=== PATIENT | female | born 1930 | race African-American/Black ===

== ENCOUNTER 2018-09-08 13:48 | Outpatient (CLI) | payer MEDICARE, BC ==
--- NOTE | 2018-09-08 20:19 | PET ---
PET CT WITH ATTENUATION CORRECTION: 09/08/18 HISTORY: Lymphoma. Initial examination. COMPARISON: None. TECHNIQUE: PET scan with CT attenuation correction is performed from the base of the brain to the proximal thigh s following the intravenous administration of 10.5 millicuries of [id number]. CORRELATION: Abdomen and pelvic CT [facility] 08/05/18. FINDINGS: HEAD AND NECK: There is a hypermetabolic left and right periclavicular lymph node with a maximum SUV of 6.5 and 12.1 respectively. CHEST: Hypermetabolic bilateral axillary lymph nodes. [employer] hypermetabolic lymph node in the left a xilla has a maximum SUV of 3.7. There is hypermetabolic activity involving the precarinal lymph node with a maximum SUV of 19.2, subcarinal lymph node with maximum SUV of 15.8, left hilar lymph node wit h maximum SUV of 9.8. ABDOMEN AND PELVIS: There is a hypermetabolic periportal lymph node with maximum SUV of 16.3, peripancreatic lymph node a djacent to the body of the pancreas with maximum SUV of 9.9, periaortic lymph nodes with maximum SUV of 8.9 and 11.8, right lower quadrant mesenteric lymph node with maximum SUV of 16.2. There is a hype rmetabolic lymph node adjacent to the right common iliac vessels with a maximum SUV of 5.7. There is hypermetabolic lymph nodes in the right external iliac region with a maximum SUV of 13.8 and left ext ernal iliac region with a maximum SUV of 14.4. There are hypermetabolic bilateral inguinal lymph node s. OSSEOUS STRUCTURES: No abnormal FDG localization. The background SUV of the liver is between 3.5 and 3.8. 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 The Deauville score is 5. There i s uptake markedly increased compared to liver at multiple sites. POS: [facility]
== END 2018-09-08 13:49 | disposition home or self-care (01) ==
LOC: PET 13:48
PROVIDERS: ATTEND Internal Medicine Hematology & Oncology
DX: C85.99 Non-Hodgkin lymphoma, unspecified, extranodal and solid organ sites (principal); R94.8 Abnormal results of function studies of other organs and systems
CPT/HCPCS: 78815; A9552

== ENCOUNTER 2018-10-23 14:31 | Inpatient (IN) | payer MEDICARE, BC ==
--- NOTE | 2018-10-23 16:12 | CT ---
HEAD CT NONCONTRAST: Comparison: 09-18-14 Indication: Altered mental status. FINDINGS: There is density of each basal ganglia indicating physiologic basal ganglia calcification. There is n o intracranial hemorrhage or mass effect or midline shift. No acute fluid level of the imaged paranas al sinuses. Evidence of mild chronic ischemic disease is present. IMPRESSION: No acute intracranial abnormalities. POS: [facility]
[2018-10-23 17:01] LABS: Hemoglobin 8.4 g/dL (12.0-16.0); Mean Corpuscular HGB CONC 31.4 g/dL (32.0-36.0); Mean Corpuscular Hemoglobin 22.5 pg (27.0-31.0); Mean Corpuscular Volume 71.6 fL (78.0-98.0); Mean Platelet Volume 7.3 fL (7.4-10.4); Platelet Count 95 thou/uL (130-400); RBC Distribution Width 17.5 % (11.5-14.5); Red Blood Cell (RBC) Count 3.73 mill/uL (4.20-5.40); White Blood Cell (WBC) Count 7.3 thou/uL (4.8-10.8)
[2018-10-23 17:04] LABS: Anisocytosis SLIGHT = 6-15 cells (100X) (0-5/hpf); Band 10 % (5-11); Hypochromia SLIGHT = 6-15 cells (100X) (0-5/hpf); Large Platelets SLIGHT; Lymphocytes 14 % (21-51); MDiff Complete? YES; Microcytosis SLIGHT = 6-15 cells (100X) (0-5/hpf); Monocytes 7 % (0-10); Neutrophil 69 % (42-75); Platelet Morphology Comment Appears Decreased; Polychromasia MODERATE = 3-4 cells (100X) (0-2/hpf); Spherocytes SLIGHT = 1-5 cells (100X) (None Seen); Target Cells SLIGHT = 2-5 cells (100X) (0-1/hpf)
[2018-10-23 17:33] LABS: ALT (SGPT) Less than 7 U/L (8-55); AST (SGOT) 12 U/L (5-34); Albumin 3.2 g/dL (3.4-4.8); Alkaline Phosphatase 81 U/L (40-150); Anion Gap 12 mmol/L (10-20); BUN (Urea Nitrogen) 18 mg/dL (9.8-20.1); Bilirubin, Total 0.7 mg/dL (0.2-1.2); Calc. Creatinine Clearance 0 mL/min (70-130); Calcium 9.7 mg/dL (7.8-10.44); Carbon Dioxide 24 mmol/L (23-31); Chloride 108 mmol/L (98-107); Estimated GFR-MDRD 50; Globulin 3.3 g/dL (2.4-3.5); Glucose 95 mg/dL (83-110); Magnesium 1.9 mg/dL (1.6-2.6); Potassium 4.4 mmol/L (3.5-5.1); Protein, Total 6.5 g/dL (6.0-8.3); Sodium 140 mmol/L (136-145)
[2018-10-23 19:37] LABS: Bilirubin Negative (Negative); Blood, Urine Negative (Negative); Clarity CLOUDY (Clear); Glucose, Urine (Dipstick) Negative (Negative); Leukocyte Negative (Negative); Nitrite Negative (Negative); Protein, Urine (Dipstick) Negative (Neg-Trace); Specific Gravity, Urine 1.015 (1.002-1.036)
[2018-10-23] MEDS ORDERED: Bisacodyl 10 MG SUPP PR PRN (21:37)
[2018-10-23] MEDS ORDERED: hydrALAZINE 20 MG/ML VIAL SLOW IVP PRN (21:37)
[2018-10-23] MEDS ORDERED: Senokot S 8.6-50 MG TAB PO PRN ×2 (21:37)
[2018-10-23] MEDS ORDERED: Bisacodyl 5 MG TAB PO PRN (21:37)
[2018-10-23] MEDS ORDERED: cloNIDine 0.1 MG TAB PO PRN (21:37)
[2018-10-23] MEDS ORDERED: Nitroglycerin 0.4 MG TAB (25 Tab Bottle) SL PRN (21:37)
[2018-10-23] MEDS ORDERED: Ondansetron PF 4 MG/2 ML Vial IVP PRN (21:37)
[2018-10-23] MEDS ORDERED: Calcium Carbonate 500 MG ChewTAB PO PRN (21:37)
[2018-10-23] MEDS ORDERED: Diabetic Tussin 200 MG/10 ML UDCUP PO PRN (21:37)
[2018-10-23] MEDS ORDERED: Benzonatate 100 MG CAP PO PRN (21:37)
[2018-10-23] MEDS ORDERED: Sodium Chloride 0.9% 1,000 ML IV SCH (21:45)
[2018-10-23 22:05] LABS: Reticulocyte Count 4.1 % (0.5-1.5)
[2018-10-23 22:06] LABS: Fibrinogen 411 mg/dL (253-463); Platelet Count 89 thou/uL (130-400)
[2018-10-23 22:07] LABS: INR-International Normal Ratio 1.2; PTT 27.2 SEC (22.9-36.1); Prothrombin Time 15.5 SEC (12.0-14.7)
[2018-10-23 22:08] LABS: D-Dimer Test 1.61 *mcg/mL (0.27-0.43)
[2018-10-23 22:20] LABS: Uric Acid 6.3 mg/dL (2.6-6.0)
[2018-10-23 22:24] LABS: Band 9 % (5-11); Hemoglobin 8.1 g/dL (12.0-16.0); Hypochromia MODERATE=16-30 cells (100X) (0-5/hpf); Lymphocytes 17 % (21-51); MDiff Complete? YES; Mean Corpuscular HGB CONC 31.1 g/dL (32.0-36.0); Mean Corpuscular Hemoglobin 22.1 pg (27.0-31.0); Mean Corpuscular Volume 71.2 fL (78.0-98.0); Mean Platelet Volume 7.2 fL (7.4-10.4); Metamyelocyte 1 % (0-0); Microcytosis MODERATE=15-30 cells (100X) (0-5/hpf); Monocytes 12 % (0-10); Neutrophil 61 % (42-75); Platelet Count 89 thou/uL (130-400); Platelet Morphology Comment Appears Decreased; RBC Distribution Width 17.4 % (11.5-14.5); Red Blood Cell (RBC) Count 3.66 mill/uL (4.20-5.40); White Blood Cell (WBC) Count 6.4 thou/uL (4.8-10.8)
[2018-10-23 22:34] LABS: FSP-Qualitative ABNORMAL (Normal); FSP-Semiquantitative >=5 & <20 mcg/mL (Less than 5)
[2018-10-23 22:57] LABS: Phosphorus 3.6 mg/dL (2.3-4.7)
[2018-10-23] MEDS ORDERED: Lorazepam 2 MG/ML VIAL SLOW IVP PRN (23:13)
[2018-10-23 23:16] VITALS: BMI 34.1
[2018-10-24] MEDS: Sodium Chloride 0.9% 1,000 ML IV SCH ×2 (00:03→16:51)
--- NOTE | 2018-10-24 00:42 | HP ---
PRIMARY CARE PHYSICIAN: Dr. Morris. PRIMARY ONCOLOGIST: Dr. Solomon. CHIEF COMPLAINT: Passing-out spells. HISTORY OF PRESENTING ILLNESS: Ms. Pearson is a very pleasant 88-year-old Afro-[place]er female with new diagnosis of lymphoma of unknown type, presented to the emergency room with the above-mentioned complaint. History is mainly obtained by her daughter and son who are present in the room. The patient is not wanting to talk much at this time as she does not have her dentures on. According to the chart review and her family, the patient has been having these episodes of passing out for the last month or so. A typical episode starts when she feels dizzy and she just passes out. The first two times she actually fell. These episodes last anywhere from 5 to 7 minutes. When she wakes up from these episodes, she just yawns and comes to it quickly. She does have amnesia for the episode, but is not confused afterwards. There is no tongue biting or incontinence during these episodes. Today, it happened again and lasted for about 30 minutes and she vomited once, so they brought her to the hospital. She did have an appointment with Dr. Solomon today, but unfortunately she missed it. With regard to her lymphoma, it is a new diagnosis for them. They have been told what kind of lymphoma it is, but they do not remember. She has been offered chemotherapy and is contemplating if she really wants it or not. In the emergency room upon presentation, she was hemodynamically stable with a blood pressure of 112/40, temperature 98.1, and pulse of 79. She, however, had multiple lab abnormalities including a hemoglobin of 8.4, which is largely microcytic hypochromic and a platelet count of 95. Her last hemoglobin was 11.1 five years ago, so there is no recent lab available for me to review. The last platelet count in our system is also from 2013 which was normal. The patient denies any active bleeding. She denies any recent illnesses. She denies any chest pain, palpitations, or shortness of breath. She denies any dysuria, frequency, urgency, nausea, vomiting, or diarrhea, except for the one episode of vomiting today. She has good appetite and has not been losing any weight. She denies any night sweats. In the ER, her cardiac enzymes and TSH were also checked, which were normal. She had mild elevation of creatinine to 1.23, which seems to be baseline. Her creatinine in 2014 was almost the same. Urinalysis is unremarkable in the ER. CT scan of the brain done in the emergency room does not show any hemorrhage or any masses. She is now being admitted for further workup of syncope, anemia, and thrombocytopenia. PAST MEDICAL HISTORY: 1. New diagnosis of lymphoma of unknown type. 2. Hypertension. 3. Dyslipidemia. 4. Peptic ulcer disease. 5. Depression. 6. History of sickle cell trait. 7. Chronic insomnia. 8. Obesity. 9. Deconditioning. 10. Degenerative joint disease. PAST SURGICAL HISTORY: 1. Three back surgeries. 2. Appendectomy. 3. Hysterectomy. 4. Laparoscopic cholecystectomy with bowel perforation in 1993. 5. EGD. ALLERGIES: NO KNOWN MEDICATION ALLERGIES. SOCIAL HISTORY: She lives with the family. No history of drug, tobacco, or alcohol abuse. FAMILY HISTORY: Positive for diabetes and hypertension. CURRENT HOME MEDICATIONS: Not confirmed as yet. According to the ER note, she takes the followin. Aspirin 81 mg daily. 2. Celebrex 50 mg daily. 3. Amitriptyline 50 mg daily. 4. Levothyroxine 50 mcg daily. 5. Folic acid 1 mg daily. 6. Atorvastatin 20 mg daily. CODE STATUS: Full code, discussed with the patient and her family. LABORATORY DATA: Her CBC shows WBC 7.3 without any left shift. Her lymphocyte count is actually low at 14%. Platelet count 95 with repeat counts of 89. Hemoglobin 8.4 with a repeat count of 8.1, which is hypochromic and microcytic in nature. Serum chemistries show creatinine 1.23, but otherwise largely unremarkable. Liver enzymes are normal. Total bilirubin is normal at 0.7. Serum total protein is 6.5. TSH 2.2. Urinalysis unremarkable. IMAGING: CT scan of the brain by my review shows no evidence of acute hemorrhage, masses, or acute CVA. A 12-lead EKG by my review shows some T-wave flattening in the lateral leads, otherwise normal ST-segment, in sinus rhythm at heart rate of 82. PHYSICAL EXAMINATION: VITAL SIGNS: Most recent vital signs; temperature 98.2, pulse of 66, respirations 20, saturating 99% on room air, and blood pressure 142/66. GENERAL: No acute distress. Lying in bed comfortably. Family is at bedside. She is awake, alert, and oriented x3. HEENT EXAMINATION: Mucous membrane is moist and pink. No oropharyngeal exudate or erythema. Head is normocephalic and atraumatic. Pupils are equal and reactive to light and accommodation. Extraocular movement intact. NECK: Supple without any lymphadenopathy, JVD, or bruit. CHEST: Clear to auscultation without any wheezing, rales, or rhonchi. HEART: Rhythm is regular without any murmurs or gallops. ABDOMEN: Soft, nontender, and nondistended with positive bowel sounds. EXTREMITIES: Free of any cyanosis, clubbing, or edema. NEUROLOGICAL EXAMINATION: Nonfocal. SKIN: Free of any rashes or bruises. Feels warm and dry. PSYCHIATRIC: Normal affect. IMPRESSION AND PLAN: 1. Syncope. The patient's symptoms are quite concerning for seizure activity. We will go ahead and obtain an MRI of the brain as well as EEG. Also, obtain a carotid Doppler ultrasound and transthoracic echocardiogram. She will be on telemetry to rule out any arrhythmias, but most of her symptoms are consistent with seizures. We will consult Neurology in the morning for same as well. She is at her baseline for now and we will avoid any antiepileptic drugs for now. Use Ativan p.r.n. for any seizure like activities, if it happens again. She is also hemodynamically stable at this time. I do not believe that her anemia is responsible for her symptoms, which are episodic and chronic in nature for almost last month or so. 2. Fall precautions will be instituted. 3. Anemia and thrombocytopenia. There is no recent baseline for this patient. She does not seem to be having any overt bleeding. We will get her labs from Dr. Solomon' office. No indication for transfusion at this time. We will avoid any pharmacological DVT prophylaxis on her given thrombocytopenia and hold her aspirin and for now as they are both antiplatelet medications. Also at this time, hemolysis, such as microangiopathic hemolytic anemia because of lymphoma cannot be ruled out. Other differential would include thrombotic thrombocytopenic purpura and disseminated intravascular coagulation, which can be potentially life threatening. We will send a disseminated intravascular coagulation panel though the thrombotic thrombocytopenic purpura is less likely. We will send the peripheral smear to look for schistocytes. Also, check iron levels and other iron indices as well as B12 and folic acid level. We will send for LDH as well as reticulocyte count. The patient also has history of sickle cell trait. She is relatively hemodynamically stable, so most likely the drop in hemoglobin is not acute. At the same time, bone marrow infiltration or hypersplenism because of the lymphoma cannot be ruled out. Depending upon how aggressive the treatment she is willing to get, a bone marrow biopsy might also be indicated. We will consult her oncologist in the morning for this reason. 4. New diagnosis of lymphoma, unknown type. The patient or the family could not tell me what type of lymphoma she has been diagnosed with. We will consult her oncologist and she will follow up in the outpatient setting with regard to the treatment for same. 5. History of hypothyroidism. Restart her levothyroxine once the dose is confirmed. 6. History of peptic ulcer disease. We will start her on Protonix, so at this time, there does not seem to be any active bleeding. The patient denies any hematochezia or melena. 7. Code status. Full code, discussed with the patient. 8. Deep venous thrombosis and gastrointestinal prophylaxis in the form of SCDs and Protonix. 9. Hypertension. Currently does not seem to be on any medications. We will monitor her blood pressure and treat accordingly. Meanwhile, start her on p.r.n. antihypertensives. DISPOSITION: Ms. Pearson is currently being admitted to the stroke floor for syncopal-like episodes, which can be seizures versus other etiology as mentioned above. She is currently under observation status. Further management will depend on her clinical course. She is hemodynamically stable. Job ID: [id number]
[2018-10-24 05:21] LABS: Band 13 % (5-11); Eosinophils 1 % (0-10); Hemoglobin 7.2 g/dL (12.0-16.0); Hypochromia MODERATE=16-30 cells (100X) (0-5/hpf); Lymphocytes 23 % (21-51); MDiff Complete? YES; Mean Corpuscular HGB CONC 31.5 g/dL (32.0-36.0); Mean Corpuscular Hemoglobin 22.5 pg (27.0-31.0); Mean Corpuscular Volume 71.3 fL (78.0-98.0); Mean Platelet Volume 7.6 fL (7.4-10.4); Microcytosis MODERATE=15-30 cells (100X) (0-5/hpf); Monocytes 5 % (0-10); Neutrophil 58 % (42-75); Platelet Count 77 thou/uL (130-400); Platelet Morphology Comment Appears Decreased; RBC Distribution Width 17.4 % (11.5-14.5); Red Blood Cell (RBC) Count 3.18 mill/uL (4.20-5.40); White Blood Cell (WBC) Count 5.1 thou/uL (4.8-10.8)
[2018-10-24 05:32] LABS: Anion Gap 10 mmol/L (10-20); BUN (Urea Nitrogen) 19 mg/dL (9.8-20.1); Calc. Creatinine Clearance 52 mL/min (70-130); Calcium 9.1 mg/dL (7.8-10.44); Carbon Dioxide 25 mmol/L (23-31); Chloride 106 mmol/L (98-107); Estimated GFR-MDRD 55; Glucose 94 mg/dL (83-110); Iron 65 ug/dL (50-170); Iron Binding Capacity, Total 198 mcg/dL (265-497); Potassium 4.1 mmol/L (3.5-5.1); Sodium 137 mmol/L (136-145)
[2018-10-24 05:58] LABS: Folate (Folic Acid) 14.9 ng/mL (7.0-31.4)
--- NOTE | 2018-10-24 09:15 | ULT ---
BILATERAL CAROTID DUPLEX ULTRASOUND: HISTORY: Altered mental status, TIA, CVA. TECHNIQUE: Norton scale, color flow, and spectral Doppler imaging of the extracranial carotid artery systems is pe rformed bilaterally. FINDINGS: There is plaque formation on either side. The peak systolic velocity in the right ICA measures 135 cm/s with an end-diastolic velocity of 32 cm /s and a systolic ratio of 0.9. The peak systolic velocity in the left ICA measures 145 cm/s with an end-diastolic velocity of 24 cm/ s and a systolic ratio of 0.8. Flow in both vertebral arteries remains antegrade. IMPRESSION: No evidence of hemodynamically significant stenosis. POS: [facility]
--- NOTE | 2018-10-24 10:51 | CON ---
DATE OF CONSULTATION: 10/24/2018 TYPE OF CONSULTATION: Neurologic Followup Note. CONSULT PHYSICIAN: Hospitalist Service. IMPRESSION: 1. Recurrent seizure. 2. Lymphoma. PLAN: 1. Keppra 1500 mg now and 500 mg twice a day. 2. Office followup. HISTORY OF PRESENT ILLNESS: Ms. Pearson is an 88-year-old black female, who was previously worked up at [facility] in August for what appeared to be her first seizure. Her workup was negative at that time, and she was discharged without medication regimen. Reports she had a recurrent episode, where she became transiently confused appearing and would not respond appropriately. She did not have any type of convulsion. The episode lasted around 10 minutes. She had seen other episodes that only lasted 2 or 3 minutes. If she is standing, she would lose control and fall. She had a similar episode and was brought in. She had an MRI of the brain done, which was unremarkable. Carotid Doppler shows no evidence of stenosis. Her laboratory studies were all unremarkable as well. She has otherwise been stable. PAST MEDICAL HISTORY: Lymphoma with pending treatment by Dr. Solomon. ALLERGIES: NONE. SOCIAL HISTORY: No tobacco or alcohol. MEDICATIONS: Medication list was reviewed. FAMILY HISTORY: Noncontributory. REVIEW OF SYSTEMS: Ten-system review of systems is otherwise negative. PHYSICAL EXAMINATION: VITAL SIGNS: Blood pressure 111/55, pulse 83, respirations 16, and temperature 98.5. HEENT: Within normal limits. NECK: Supple. No lymphadenopathy. EXTREMITIES: No cyanosis or edema. NEUROLOGIC: She is alert and appropriate. Her speech is fluent and clear. Exam is nonfocal. No abnormal movements were seen. IMAGING: Reviewed. SUMMARY: An elderly lady with recurrent focal seizure activity. I will go ahead and start her on Keppra and follow up with her in the office. Job ID: [id number]
[2018-10-24] MEDS ORDERED: levETIRAcetam 500 MG TAB PO SCH (11:00)
--- NOTE | 2018-10-24 11:24 | PDOC.PN ---
- Subjective Encounter Start Date: 10/24/18 Encounter Start Time: 10:30 Subjective: Patient examined today, denies complaints -: Stated Dr. Solano came to see her today - Objective Resuscitation Status - Order Detail: 10/23/18 23:02 Resuscitation Status Routine Resuscitation Status: FULL: Full Resuscitation Discussed with: discussed with pt and family Vital Signs & Weight: Vital Signs (12 hours) Temp Pulse Resp BP Pulse Ox 10/24/18 07:39 98.5 F 83 16 111/55 L 98 10/24/18 04:00 98.6 F 75 18 102/43 L 99 10/24/18 00:00 98.7 F 79 18 116/54 L 98 Weight Weight 93.043 kg Result Diagrams: 10/24/18 04:15 10/24/18 04:15 Phys Exam - Physical Examination HEENT: PERRLA, moist MMs Neck: no nodes, no JVD Respiratory: clear to auscultation bilateral Cardiovascular: RRR, no significant murmur Gastrointestinal: soft, non-tender, positive bowel sounds Musculoskeletal: no edema, pulses present Neurological: non-focal, normal sensation, moves all 4 limbs Lymphatic: no nodes Psychiatric: normal affect, A&O x 3 Skin: normal turgor, cap refill <2 seconds Dx/Plan (1) Seizure Code(s): R56.9 - UNSPECIFIED CONVULSIONS Status: Acute (2) Lymphoma Status: Acute (3) Syncope and collapse Code(s): R55 - SYNCOPE AND COLLAPSE Status: Acute (4) Anemia Code(s): D64.9 - ANEMIA, UNSPECIFIED Status: Chronic (5) Thrombocytopenia Code(s): D69.6 - THROMBOCYTOPENIA, UNSPECIFIED Status: Chronic (6) Hypertension Code(s): I10 - ESSENTIAL (PRIMARY) HYPERTENSION Status: Chronic - Plan cont current plan of care Neuro to add Keppra, MRI brain and carotid doppler neg -: Awaiting Oncology consult -: Recheck labs, trend vital signs -: May be able to discharge tomorrow if Oncology agrees. * .
--- NOTE | 2018-10-24 12:37 | MRI ---
MRI BRAIN WITH AND WITHOUT CONTRAST: HISTORY: An 88-year-old female with lymphoma who presents with altered mental status. TECHNIQUE: Multiple sequences obtained in axial, sagittal, and coronal planes; pre and post IV injection of gado linium-based contrast agent: 9 mL of MultiHance. FINDINGS: The ventricles are normal in size and configuration. There is no restricted diffusion, abnormal intr aaxial enhancement, mass, midline shift or any other mass effect, recent intraaxial hemorrhage, or ex traaxial fluid collection. There are a few scattered punctate T2-hyperintensities in the cerebral whi te matter consistent with mild chronic ischemic white matter changes due to mild microvascular athero sclerosis. IMPRESSION: 1. Mild chronic ischemic white matter changes. 2. Otherwise negative. jn[] POS: [facility]
--- NOTE | 2018-10-24 13:40 | PDOC.EVN ---
Event Note - Event Note Event Note: Chart reviewed. Pt seen with Marisela O'chon. Pt says she feels well, no complaints. VSS S1, S2, reg Lungs CTA A/P Seizure vs syncope, probably seizure. Pt has been started on keppra. Discussed plan of care with Marisela.
[2018-10-24] MEDS ORDERED: Acetaminophen 325 MG TAB PO PRN (17:28)
[2018-10-24] MEDS: levETIRAcetam 500 MG TAB PO SCH (21:50)
[2018-10-25] MEDS: Acetaminophen 325 MG TAB PO PRN ×2 (04:53→22:57)
[2018-10-25] MEDS: Sodium Chloride 0.9% 1,000 ML IV SCH ×3 (08:40→17:55)
[2018-10-25] MEDS: levETIRAcetam 500 MG TAB PO SCH ×2 (08:41→20:41)
[2018-10-25 12:38] LABS: ALT (SGPT) 7 U/L (8-55); AST (SGOT) 13 U/L (5-34); Alkaline Phosphatase 79 U/L (40-150); Anion Gap 8 mmol/L (10-20); BUN (Urea Nitrogen) 17 mg/dL (9.8-20.1); Bilirubin, Total 0.9 mg/dL (0.2-1.2); Calc. Creatinine Clearance 56 mL/min (70-130); Calcium 9.4 mg/dL (7.8-10.44); Carbon Dioxide 28 mmol/L (23-31); Chloride 107 mmol/L (98-107); Estimated GFR-MDRD 59; Glucose 94 mg/dL (83-110); Sodium 139 mmol/L (136-145)
[2018-10-25 13:06] LABS: Band 2 % (5-11); Burr Cells SLIGHT = 2-5 cells (100X) (0-1/hpf); Eosinophils 2 % (0-10); Hemoglobin 10.7 g/dL (12.0-16.0); Hypochromia SLIGHT = 6-15 cells (100X) (0-5/hpf); Lymphocytes 6 % (21-51); MDiff Complete? YES; Mean Corpuscular HGB CONC 31.4 g/dL (32.0-36.0); Mean Corpuscular Hemoglobin 23.5 pg (27.0-31.0); Microcytosis MODERATE=15-30 cells (100X) (0-5/hpf); Monocytes 22 % (0-10); Neutrophil 56 % (42-75); Platelet Count 76 thou/uL (130-400); Platelet Morphology Comment Appears Decreased; Polychromasia SLIGHT = 2-3 cells (100X) (0-2/hpf); RBC Distribution Width 18.8 % (11.5-14.5); Reactive Lymphocytes 12 % (0-10); Red Blood Cell (RBC) Count 4.54 mill/uL (4.20-5.40); White Blood Cell (WBC) Count 7.4 thou/uL (4.8-10.8)
--- NOTE | 2018-10-25 13:31 | PDOC.PN ---
- Subjective Encounter Start Date: 10/25/18 Encounter Start Time: 12:30 Subjective: Patient examined this morning -: Denies complaints, family at the bedside - Objective Resuscitation Status - Order Detail: 10/23/18 23:02 Resuscitation Status Routine Resuscitation Status: FULL: Full Resuscitation Discussed with: discussed with pt and family Vital Signs & Weight: Vital Signs (12 hours) Temp Pulse Resp BP BP Pulse Ox 10/25/18 11:55 98.5 F 61 18 121/67 100 10/25/18 07:39 98.7 F 80 20 113/60 95 10/25/18 04:00 99.2 F 79 16 105/63 96 Weight Admit Weight 93.043 kg Weight 93.043 kg I&O: 10/24/18 10/25/18 10/26/18 06:59 06:59 06:59 Intake Total 2319 Balance 2319 Result Diagrams: 10/25/18 11:58 10/25/18 11:58 Phys Exam - Physical Examination HEENT: PERRLA, moist MMs Neck: no nodes, no JVD Respiratory: no wheezing, clear to auscultation bilateral Cardiovascular: RRR Gastrointestinal: soft, non-tender Musculoskeletal: no edema, pulses present Neurological: non-focal, normal sensation Lymphatic: no nodes Psychiatric: normal affect, A&O x 3 Skin: no rash, normal turgor Dx/Plan (1) Seizure Code(s): R56.9 - UNSPECIFIED CONVULSIONS Status: Chronic (2) Lymphoma Status: Acute (3) Syncope and collapse Code(s): R55 - SYNCOPE AND COLLAPSE Status: Acute (4) Anemia Code(s): D64.9 - ANEMIA, UNSPECIFIED Status: Chronic (5) Thrombocytopenia Code(s): D69.6 - THROMBOCYTOPENIA, UNSPECIFIED Status: Chronic (6) Hypertension Code(s): I10 - ESSENTIAL (PRIMARY) HYPERTENSION Status: Chronic - Plan Family at bedside side stated they talked patient into staying for lymphoma -: treatment. Patient verbally states agreement.2nd PRBC is still be infused. -: Dr. Solomon is following * . Review of Systems - Review of Systems Neurological: Seizures - Medications/Allergies Allergies/Adverse Reactions: Allergies Allergy/AdvReac Type Severity Reaction Status Date / Time No Known Drug Allergies Allergy Verified 09/18/14 22:15 Medications: Current Medications Acetaminophen (Tylenol) 650 mg PO Q4H PRN PRN Reason: Headache/Fever/Mild Pain (1-3) Last Admin: 10/25/18 04:53 Dose: 650 mg Benzonatate (Tessalon) 100 mg PO Q6H PRN PRN Reason: Cough Bisacodyl (Dulcolax) 10 mg PO DAILYPRN PRN PRN Reason: Constipation Bisacodyl (Dulcolax) 10 mg FL DAILYPRN PRN PRN Reason: Constipation Calcium Carbonate (Tums) 1,000 mg PO Q4H PRN PRN Reason: Heartburn or Indigestion Clonidine (Catapres) 0.1 mg PO Q4H PRN PRN Reason: SBP > 160____ Guaifenesin (Robitussin Sf) 200 mg PO Q4H PRN PRN Reason: Cough Hydralazine HCl (Apresoline) 10 mg SLOW IVP Q4H PRN PRN Reason: SBP > 180 and HR < 70 Sodium Chloride (Normal Saline 0.9%) 1,000 mls @ 75 mls/hr IV .[id number] [facility] Last Admin: 10/25/18 08:40 Dose: 1,000 mls Levetiracetam (Keppra) 500 mg PO BID [facility] Last Admin: 10/25/18 08:41 Dose: 500 mg Lorazepam (Ativan) 1 mg SLOW IVP Q4H PRN PRN Reason: Seizures Last Admin: 10/24/18 09:02 Dose: 1 mg Nitroglycerin (Nitrostat) 0.4 mg SL Q5MIN PRN PRN Reason: Chest Pain Ondansetron HCl (Zofran) 4 mg IVP Q6H PRN PRN Reason: Nausea/Vomiting Pantoprazole Sodium (Protonix) 40 mg PO DAILY [facility] Last Admin: 10/25/18 08:41 Dose: 40 mg Senna/Docusate Sodium (Senokot S) 2 tab PO BID PRN PRN Reason: Constipation
--- NOTE | 2018-10-25 15:18 | PDOC.EVN ---
Event Note - Event Note Event Note: Chart reviewed. Patient seen. No chest pain, shortness of breath, fevers or chills. VSS. S1, S2, RRR Lungs CTA. A/P: Lymphoma: Plan to start chemotherapy. Seizure: continue Keppra Discussed plan of care with SEARCH ENGINE [employer]IMIZER Marisela Rios'chon.
[2018-10-26 06:41] LABS: ALT (SGPT) Less than 7 U/L (8-55); AST (SGOT) 12 U/L (5-34); Albumin 2.7 g/dL (3.4-4.8); Alkaline Phosphatase 72 U/L (40-150); Anion Gap 12 mmol/L (10-20); BUN (Urea Nitrogen) 14 mg/dL (9.8-20.1); Bilirubin, Total 0.6 mg/dL (0.2-1.2); Calc. Creatinine Clearance 64 mL/min (70-130); Carbon Dioxide 22 mmol/L (23-31); Chloride 109 mmol/L (98-107); Estimated GFR-MDRD 69; Globulin 2.7 g/dL (2.4-3.5); Glucose 92 mg/dL (83-110); Potassium 3.9 mmol/L (3.5-5.1); Protein, Total 5.4 g/dL (6.0-8.3); Sodium 139 mmol/L (136-145)
[2018-10-26] MEDS: Sodium Chloride 0.9% 1,000 ML IV SCH ×2 (06:47→16:00)
[2018-10-26 06:48] LABS: Band 5 % (5-11); Eosinophils 3 % (0-10); Hemoglobin 9.8 g/dL (12.0-16.0); Lymphocytes 19 % (21-51); MDiff Complete? YES; Mean Corpuscular Hemoglobin 24.7 pg (27.0-31.0); Mean Corpuscular Volume 74.8 fL (78.0-98.0); Mean Platelet Volume 7.5 fL (7.4-10.4); Monocytes 5 % (0-10); Neutrophil 68 % (42-75); Platelet Count 64 thou/uL (130-400); Platelet Morphology Comment Appears Decreased; RBC Distribution Width 18.9 % (11.5-14.5); Red Blood Cell (RBC) Count 3.96 mill/uL (4.20-5.40); White Blood Cell (WBC) Count 5.8 thou/uL (4.8-10.8)
[2018-10-26] MEDS: levETIRAcetam 500 MG TAB PO SCH ×2 (09:59→21:25)
--- NOTE | 2018-10-26 10:19 | CON ---
DATE OF CONSULTATION: 10/24/2018 REASON FOR CONSULTATION: History of large cell lymphoma. HISTORY OF PRESENT ILLNESS: The patient is an 88-year-old woman with a known history of probable seizure disorder, admitted for similar episode manifested by an episode of passing out after feeling dizzy. The episodes last anywhere from 5 to 7 minutes and there is no significant postictal state. She meraz shave some amnesia for the episodes, but no confusion. There is no tongue biting, incontinence, or convulsive movements. An MRI of the brain in the emergency room was negative. She has been started on Keppra as an anticonvulsant medication. I am asked to see the patient as she has a recent diagnosis of lymphoma. She was found to have 3.3 cm mass at the head of the pancreas after an evaluation for abdominal pain, resultant in a CT scan of abdomen in early July. She subsequently underwent endoscopic ultrasound and FNA of the mass which was diagnostic of diffuse large B cell lymphoma. CMyc gene was not rearranged. However, BCL6 was positive in 37% of cells and BCL2 was also positive in 28% of cells without rearrangement. The Ki-67 was 90%. 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 The patient had only lost about 10 pounds. A PET scan in August did show bilateral supraclavicular, axillary, and intraabdominal adenopathy. I discussed treatment as well as nature of the illness with the patient and family. Given her advance age, typical therapy with adriamycin based combination chemotherapy would be poorly tolerated. I did recommend palliative therapy with cytoxan, vincristine, prednisone, and Rituxan, and I discussed the potential risks and benefits. I have not seen her since our visit on September 11. Today, I discussed the lymphoma as well as the diagnosis and treatment options again with the patient and her . ALLERGIES: NONE. MEDICATIONS: 1. Elavil. 2. Asprin. 3. Levothyroxine. 4. Lipitor. 5. Citalopram. MEDICAL ILLNESSES: There is a history of diabetes mellitus, hyperlipidemia, degenerative joint disease, depression, esophageal reflux, sickle cell trait, and obesity. PAST SURGICAL HISTORY: She had undergone appendectomy, TAHBSO, carpal tunnel release, laparoscopic cholecystectomy in 1993, upper GI endoscopy with esophageal dilation in 2000, colonoscopy in 2004, a repeat upper gastrointestinal dilation in 2005, history of multiple back surgeries, a knee replacement, and endoscopic ultrasound as described. PERSONAL HISTORY: She is and has 5 children. She lives with his spouse who is present today. She is a nonsmoker. She does not drink alcohol. She is up-to-date on her mammogram which was performed on June 2018. REVIEW OF SYSTEMS: See history of present illness. She has had some loss of appetite with minimal weight loss. She has occasional episodes of lightheadedness and syncope as described. She has some dyspnea on exertion. She has nonspecific abdominal pain that is not related to meals. She has chronic joint and low back pain. Otherwise, she denies significant cardiopulmonary, GI, , musculoskeletal, or neurological complaints. PHYSICAL EXAMINATION: VITAL SIGNS: Temperature 98.1, pulse 93 and regular, respirations 16, blood pressure 99/64. GENERAL: The patient is a well-developed and well-nourished woman, in no acute distress. She is alert, oriented, and cooperative. HEENT: Extraocular movements are intact. Pupils are equal, round, and reactive to light. NECK: Supple. LUNGS: Clear. CARDIOVASCULAR: Regular rate and rhythm without murmur, rub, gallop, or click. ABDOMEN: No tenderness, organomegaly, masses, bruits, or ascites. EXTREMITIES: No clubbing, cyanosis, or edema. SKIN: Normal. LYMPH: No adenopathy. MUSCULOSKELETAL: No active arthritis. NEUROLOGICAL: No focal findings. Cranial nerves II through XII are grossly intact. LABORATORY DATA: White blood count is 6.4, hemoglobin 7.2, MCV 71.3, and platelet count 77,000. The white blood cell differential was normal. Chemistries are normal including electrolytes and a creatinine of 1.1. Calcium is 9.1. The iron saturation is 33%. Vitamin B12 and folic acid are both normal. The albumin is 3.0. IMAGING DATA: As noted. An MRI of the brain showed no evidence of malignancy. 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 RECOMMENDATIONS: I discussed findings at length with the patient and her . The syncopal event and possible seizure episode are, in my opinion, unrelated to the lymphoma. These episodes had been present for an extended period of time. Again, I discussed this lymphoma, the aggressive nature of the lymphoma, and potential treatment. While curative, adriamycin-based therapy is not possible given her advanced age, palliative treatment with CVP/R with rituxan maintenance is a consideration. I discussed the potential risks and benefits of this therapy again. She will consider her options and lt me know tomorrow of her final decision. Thank you very much for allowing me to provide more recommendations. Job ID: [id number] MTDD
[2018-10-26] MEDS ORDERED: vinCRIStine Sulfate 2 MG in Sodium Chloride 0.9% 50 ML IVPB SCH (10:30)
[2018-10-26] MEDS ORDERED: Dexamethasone 10 MG/ML VIAL SLOW IVP SCH (10:30)
[2018-10-26] MEDS ORDERED: Rituximab 500 MG, Rituximab 250 MG in Sodium Chloride 0.9% 500 ML IVPB SCH (10:30)
[2018-10-26] MEDS ORDERED: diphenhydrAMINE 50 MG/ML VIAL IVP SCH (10:30)
[2018-10-26] MEDS ORDERED: PALONOSETRON HCL 0.05 MG/ML 5 ML VIAL IVP SCH (10:30)
[2018-10-26] MEDS ORDERED: Cyclophosphamide 1 GM, Cyclophosphamide 500 MG in Sodium Chloride 0.9% 250 ML 250 ML IVPB SCH (10:45)
[2018-10-26] MEDS ORDERED: Acetaminophen 500 MG TAB PO SCH (12:30)
[2018-10-26] MEDS ORDERED: Amlodipine 5 MG TAB PO PRN (17:56)
[2018-10-26] MEDS: Acetaminophen 325 MG TAB PO PRN (19:34)
--- NOTE | 2018-10-26 21:31 | PDOC.PN ---
- Subjective Encounter Start Date: 10/26/18 Encounter Start Time: 10:00 Patient seen and examined for syncope/seizures. Some nausea +. Feels gen weak. No other complaints. No overnight events - Objective Resuscitation Status - Order Detail: 10/23/18 23:02 Resuscitation Status Routine Resuscitation Status: FULL: Full Resuscitation Discussed with: discussed with pt and family MAR Reviewed: Yes Vital Signs & Weight: Vital Signs (12 hours) Temp Pulse Resp BP Pulse Ox 10/26/18 20:00 101.7 F H 97 18 140/63 93 L 10/26/18 18:18 72 18 156/70 H 92 L 10/26/18 16:56 98.2 F 74 18 128/62 97 10/26/18 16:32 97.3 F L 80 18 133/60 97 10/26/18 16:02 70 18 128/62 98 10/26/18 15:28 98.5 F 71 18 139/61 96 10/26/18 12:00 98.9 F 77 16 138/63 97 Weight Admit Weight 205 lb 2 oz Weight 205 lb I&O: 10/25/18 10/26/18 10/27/18 06:59 06:59 06:59 Intake Total 2319 Balance 2319 Result Diagrams: 10/26/18 04:27 10/26/18 04:27 Phys Exam - Physical Examination Constitutional: NAD Respiratory: no wheezing, no rhonchi Cardiovascular: RRR, no rub Gastrointestinal: soft, positive bowel sounds Musculoskeletal: no edema Dx/Plan (1) Weakness generalized Code(s): R53.1 - WEAKNESS Status: Acute Comment: multifactorial (2) Recurrent seizures Code(s): G40.909 - EPILEPSY, UNSP, NOT INTRACTABLE, WITHOUT STATUS EPILEPTICUS Status: Acute (3) Obesity (BMI 30.0-34.9) Code(s): E66.9 - OBESITY, UNSPECIFIED (4) Lymphoma Status: Chronic (5) Hypertension Code(s): I10 - ESSENTIAL (PRIMARY) HYPERTENSION Status: Chronic - Plan DVT proph w/SCDs Review of Systems - Review of Systems Cardiovascular: negative: chest pain, palpitations, orthopnea, paroxysmal nocturnal dyspnea, edema, light headedness, other Gastrointestinal: Nausea. negative: Vomiting, Abdominal Pain, Diarrhea, Constipation, Melena, Hematochezia, Other - Medications/Allergies Allergies/Adverse Reactions: Allergies Allergy/AdvReac Type Severity Reaction Status Date / Time No Known Drug Allergies Allergy Verified 09/18/14 22:15 Medications: Current Medications Acetaminophen (Tylenol) 650 mg PO Q4H PRN PRN Reason: Headache/Fever/Mild Pain (1-3) Last Admin: 10/26/18 19:34 Dose: 650 mg Amlodipine Besylate (Norvasc) 5 mg PO Q4H PRN PRN Reason: SBP > 200, DBP > 100 Benzonatate (Tessalon) 100 mg PO Q6H PRN PRN Reason: Cough Bisacodyl (Dulcolax) 10 mg PO DAILYPRN PRN PRN Reason: Constipation Bisacodyl (Dulcolax) 10 mg [place] DAILYPRN PRN PRN Reason: Constipation Calcium Carbonate (Tums) 1,000 mg PO Q4H PRN PRN Reason: Heartburn or Indigestion Clonidine (Catapres) 0.1 mg PO Q4H PRN PRN Reason: SBP > 160____ Guaifenesin (Robitussin Sf) 200 mg PO Q4H PRN PRN Reason: Cough Hydralazine HCl (Apresoline) 10 mg SLOW IVP Q4H PRN PRN Reason: SBP > 180 and HR < 70 Sodium Chloride (Normal Saline 0.9%) 1,000 mls @ 75 mls/hr IV .[id number] [facility] Last Admin: 10/26/18 06:47 Dose: 1,000 mls Levetiracetam (Keppra) 500 mg PO BID [facility] Last Admin: 10/26/18 21:25 Dose: 500 mg Lorazepam (Ativan) 1 mg SLOW IVP Q4H PRN PRN Reason: Seizures Last Admin: 10/24/18 09:02 Dose: 1 mg Nitroglycerin (Nitrostat) 0.4 mg SL Q5MIN PRN PRN Reason: Chest Pain Ondansetron HCl (Zofran) 4 mg IVP Q6H PRN PRN Reason: Nausea/Vomiting Last Admin: 10/26/18 09:26 Dose: 4 mg Pantoprazole Sodium (Protonix) 40 mg PO DAILY [facility] Last Admin: 10/26/18 09:59 Dose: 40 mg Prednisone (Prednisone) 100 mg PO [facility] Stop: 10/30/18 08:01 Senna/Docusate Sodium (Senokot S) 2 tab PO BID PRN PRN Reason: Constipation Sodium Chloride (Flush - Normal Saline) 10 ml IVF Q12HR [facility] Sodium Chloride (Flush - Normal Saline) 10 ml IVF PRN PRN PRN Reason: Saline Flush
[2018-10-26] MEDS ORDERED: Mometasone/Formoterol 120 PUFF INHALER INH PRN (21:33)
[2018-10-27] MEDS ORDERED: Palonosetron HCl 0.25 MG in Sodium Chloride 0.9% 50 ML IVPB SCH (02:45)
[2018-10-27] MEDS ORDERED: Dexamethasone 10 MG in Sodium Chloride 0.9% 50 ML IVPB SCH (02:45)
[2018-10-27] MEDS ORDERED: Levothyroxine Sodium 50 MCG TAB PO SCH (06:00)
[2018-10-27 07:46] LABS: Hemoglobin 10.2 g/dL (12.0-16.0); Mean Corpuscular HGB CONC 31.3 g/dL (32.0-36.0); Mean Corpuscular Hemoglobin 23.9 pg (27.0-31.0); Mean Corpuscular Volume 76.1 fL (78.0-98.0); Mean Platelet Volume 6.2 fL (7.4-10.4); Platelet Count 54 thou/uL (130-400); RBC Distribution Width 19.3 % (11.5-14.5); Red Blood Cell (RBC) Count 4.29 mill/uL (4.20-5.40); White Blood Cell (WBC) Count 7.7 thou/uL (4.8-10.8)
[2018-10-27 07:52] LABS: ALT (SGPT) 7 U/L (8-55); AST (SGOT) 17 U/L (5-34); Albumin 2.8 g/dL (3.4-4.8); Alkaline Phosphatase 83 U/L (40-150); Anion Gap 10 mmol/L (10-20); BUN (Urea Nitrogen) 16 mg/dL (9.8-20.1); Bilirubin, Total 0.7 mg/dL (0.2-1.2); Calc. Creatinine Clearance 62 mL/min (70-130); Carbon Dioxide 22 mmol/L (23-31); Chloride 111 mmol/L (98-107); Estimated GFR-MDRD 67; Globulin 3.1 g/dL (2.4-3.5); Glucose 104 mg/dL (83-110); Potassium 4.4 mmol/L (3.5-5.1); Protein, Total 5.9 g/dL (6.0-8.3); Sodium 139 mmol/L (136-145)
[2018-10-27] MEDS ORDERED: predniSONE 50 MG TAB PO SCH (08:00)
[2018-10-27] MEDS ORDERED: Aspirin Chewable 81 MG TAB PO SCH (09:00)
[2018-10-27] MEDS ORDERED: Folic Acid 1 MG TAB PO SCH (09:00)
[2018-10-27 09:38] LABS: Band 17 % (5-11); Hypochromia MODERATE=16-30 cells (100X) (0-5/hpf); Lymphocytes 4 % (21-51); MDiff Complete? YES; Microcytosis SLIGHT = 6-15 cells (100X) (0-5/hpf); Monocytes 12 % (0-10); Neutrophil 66 % (42-75); Platelet Morphology Comment Appears Decreased; Polychromasia MODERATE = 3-4 cells (100X) (0-2/hpf); Reactive Lymphocytes 1 % (0-10); Spherocytes SLIGHT = 1-5 cells (100X) (None Seen); Target Cells SLIGHT = 2-5 cells (100X) (0-1/hpf)
[2018-10-27] MEDS: levETIRAcetam 500 MG TAB PO SCH (09:51)
[2018-10-27 13:15] VITALS: BP 127/58; TEMP 97.9
[2018-10-27] MEDS: Sodium Chloride 0.9% 1,000 ML IV SCH (13:18)
[2018-10-27] MEDS ORDERED: Amitriptyline HCl 100 MG TAB PO SCH (21:00)
[2018-10-27] MEDS ORDERED: Atorvastatin Calcium 20 MG TAB PO SCH (21:00)
--- NOTE | 2018-10-28 18:38 | DIS ---
DATE OF ADMISSION: 10/25/2018 DATE OF DISCHARGE: 10/27/2018 DISCHARGE DISPOSITION: Home with home health care ([facility]). FOLLOWUP: 1. Follow up with primary care physician, Dr. Samra Rinaldi. 2. Follow up with Dr. Solomon next week. 3. Follow up with Dr. Solano after 1 week. ALLERGIES: NO KNOWN DRUG ALLERGIES. THE PATIENT WAS SEEN AND EXAMINED ON THE DAY OF DISCHARGE. DENIES ANY NEW COMPLAINTS. NO CHEST PAIN, SHORTNESS OF BREATH, OR PALPITATIONS REPORTED. DISCHARGE MEDICATIONS: 1. Keppra 500 mg b.i.d. 2. All other home medications were left unchanged. 3. Prednisone 100 mg daily for next three days per Oncology (chemotherapy). BRIEF HOSPITAL COURSE: The patient is an 88-year-old female with lymphoma presented to the hospital with syncope/seizure. Please refer to the history and physical dated October 23, 2018, for further details. The patient was admitted to the hospital with a diagnosis of syncope/seizure. The patient was started on Keppra per Neurology. MRI of the brain was negative for acute findings. It showed mild chronic ischemic white matter changes. Carotid Doppler was negative for hemodynamically significant stenosis. CT scan of the brain on admission was negative for acute findings. The patient was evaluated by Neurology as well as Oncology Service. She received 1 round of chemotherapy during this hospital stay. She also received 2 units of PRBC for anemia per Oncology. The patient has history of chronic thrombocytopenia. Her platelet at discharge is 54. She also had mild acute kidney injury with creatinine 1.23 on admission. The creatinine improved to 0.95 at discharge. She has been cleared by consultants for discharge. FINAL DIAGNOSES: 1. Seizure. The patient has been started on Keppra. 2. Lymphoma. The patient received 1 round of chemotherapy. 3. Generalized weakness, multifactorial. 4. Obesity with a BMI of 34.1. 5. Hypertension. 6. 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 7. Anemia secondary to chemotherapy. Lowest hemoglobin count was 7.2, requiring 2 units of PRBC. 8. Thrombocytopenia. 9. Hypothyroidism. 10. Peptic ulcer disease. 11. Hyperlipidemia. 12. Sickle cell trait. 13. Deconditioning. PLAN: Plan of care was discussed with the patient and the family in detail. She stated understanding. Job ID: [id number]
--- NOTE | 2018-10-30 09:48 | EEG ---
Referring Physician:Genia LEE EEG # [id number] TEST TYPE: ROUTINE PORTABLE INPATIENT REPORT: AN EEG USING THE INTERNATIONAL TEN-TWENTY SYSTEM OF ELECTRODE PLACEMENT WAS PERFORMED. The waking background is an 8 hertz alpha frequency. The patient became drowsy , but not sleep was seen. Photic stimulation was unremarkable. No epileptiform features were noted. IMPRESSION: THIS IS A NORMAL AWAKE EEG. Director Of Retail Merchandising: LAUREANO Clinical Staff Rn: [email or web address] NEWSOME
== END 2018-10-27 14:25 | disposition home health service (06) | DRG 101 ==
LOC: ERS 14:31 → 2SE 21:21 → OBSVTOIN 10-25 17:10 → ONC 10-25 22:14
PROVIDERS: ADMIT Internal Medicine; ATTEND Internal Medicine
PROC: 30233N1 Transfusion of Nonautologous Red Blood Cells into Peripheral Vein, Percutaneous Approach (ICD-10-PCS; 2018-10-25)
PROC: 3E03305 Introduction of Other Antineoplastic into Peripheral Vein, Percutaneous Approach (ICD-10-PCS; principal; 2018-10-26)
DX: G40.909 Epilepsy, unspecified, not intractable, without status epilepticus (principal); C83.30 Diffuse large B-cell lymphoma, unspecified site; N17.9 Acute kidney failure, unspecified; I12.9 Hypertensive chronic kidney disease with stage 1 through stage 4 chronic kidney disease, or unspecified chronic kidney disease; E78.5 Hyperlipidemia, unspecified; F32.9 Major depressive disorder, single episode, unspecified; F51.04 Psychophysiologic insomnia; E66.9 Obesity, unspecified; D69.6 Thrombocytopenia, unspecified; E03.9 Hypothyroidism, unspecified; E11.22 Type 2 diabetes mellitus with diabetic chronic kidney disease; N18.2 Chronic kidney disease, stage 2 (mild); D64.81 Anemia due to antineoplastic chemotherapy; D57.3 Sickle-cell trait; M19.90 Unspecified osteoarthritis, unspecified site; K21.9 Gastro-esophageal reflux disease without esophagitis; Z87.11 Personal history of peptic ulcer disease; Z90.49 Acquired absence of other specified parts of digestive tract; Z90.710 Acquired absence of both cervix and uterus; Z98.890 Other specified postprocedural states; Z79.82 Long term (current) use of aspirin; Z79.899 Other long term (current) drug therapy; Z68.34 Body mass index [BMI] 34.0-34.9, adult
CPT/HCPCS: 36415; 36430; 51701; 70450; 70553; 80048; 80053; 81003; 82607; 82746; 83540; 83550; 83615; 83735; 84100; 84443; 84484; 84550; 85025; 85046; 85049; 85060; 85300; 85362; 85379; 85384; 85610; 85730; 86850; 86900; 86901; 93005; 93880; 95816; 95819; A4353; J0360; J1100; J1200; J1453; J2060; J2405; J2469; J7050; J9070; J9310; J9312; J9370; P9016

== ENCOUNTER 2018-11-27 09:17 | Day surgery (SDC) | payer MEDICARE, BC ==
[2018-11-26 14:57] VITALS: BMI 35.5
[2018-11-27] MEDS ORDERED: Fentanyl 100 MCG/2 ML VIAL ONE (10:56)
[2018-11-27] MEDS ORDERED: Bupivacaine/Epinephrine 0.25% 30 ML VIAL ONE (10:58)
[2018-11-27] MEDS ORDERED: Lidocaine 2% PF 5 ML VIAL ONE (10:58)
[2018-11-27] MEDS ORDERED: PROPOFOL 200 MG/20 ML VIAL ONE (13:36)
[2018-11-27] MEDS ORDERED: Ondansetron PF 4 MG/2 ML Vial ONE (13:36)
[2018-11-27] MEDS ORDERED: Lidocaine 1% PF 5 ML VIAL ONE (13:36)
[2018-11-27] MEDS ORDERED: Dexamethasone 20 MG/5 ML VIAL ONE (13:36)
--- NOTE | 2018-11-27 13:51 | OP ---
DATE OF PROCEDURE: 11/27/2018 PREOPERATIVE DIAGNOSIS: Lymphoma. POSTOPERATIVE DIAGNOSIS: Lymphoma. PROCEDURE: Tunnelled central line and subcutaneous port (MediPort CT injectable low-profile). ANESTHESIA: General. ESTIMATED BLOOD LOSS: Minimal. COMPLICATIONS: None. SPECIMEN: None. FINDINGS: Tip of the catheter was at the atriocaval junction. TECHNIQUE: The patient was taken to the operating room and laid supine on the operating table. After general anesthetic was obtained, her bilateral neck and chest was prepped and draped in a sterile fashion. Local anesthetic was infiltrated of the right internal jugular vein. Internal jugular vein cannulated using a 22-gauge finder needle, followed by a Seldinger. Wire was passed into the superior vena cava under fluoro guidance. Small ree was made at the wire entrance site. A separate 3 cm incision made in the right upper chest. Subcutaneous pocket was made below the lower incision. Tubing for the MediPort and tunneled from the inferior to superior incision. The suture sheath was placed over the wire into the superior vena cava under fluoro guidance. The dilator and wire were removed and the end of the catheter was sewed into the sheath. The sheath was peeled away. The tip of the catheter was at the atriocaval junction. MediPort tubing cut to fit the MediPort with lower incision, connected to the MediPort, just sewn to the chest wall in the subcutaneous pocket using Prolene. The MediPort flushes and draws blood without difficulty, flushed with a heparin flush. The wounds were all irrigated, closed using 3-0 Vicryl, 4-0 Monocryl, and Dermabond. The patient was sent to Recovery in stable condition. All instrument counts, needle counts, and lap counts were correct. Job ID: [id number]
--- NOTE | 2018-11-27 14:21 | RAD ---
PORTABLE CHEST: INDICATION: MediPort insertion. COMPARISON: 09/18/2014 chest film. FINDINGS: A MediPort catheter overlies the right chest and appears to have been placed in the right jugular. T he tip is slightly more lateral than expected for the upper SVC. I cannot confirm adequate positioni ng. Lungs show some linear atelectatic changes in the bases. Heart size is upper normal. No pneumothora x. IMPRESSION: The tip of the MediPort catheter has more lateral position than typical for SVC. Consider injection under fluoroscopy to confirm position. Dr. Rocha is being paged for notification. CODE CR POS: SJ
== END 2018-11-27 14:04 | disposition home or self-care (01) ==
LOC: SDC 09:17
PROVIDERS: ATTEND Surgery
PROC: 0JH63WZ Insertion of Totally Implantable Vascular Access Device into Chest Subcutaneous Tissue and Fascia, Percutaneous Approach (ICD-10-PCS; principal; 2018-11-27)
DX: C85.90 Non-Hodgkin lymphoma, unspecified, unspecified site (principal); I10 Essential (primary) hypertension; E78.00 Pure hypercholesterolemia, unspecified; Z79.899 Other long term (current) drug therapy
CPT/HCPCS: 36561; 71045; C1788; J1642; J2001; J3010; J3490

== ENCOUNTER 2019-01-14 08:57 | Outpatient (CLI) | payer MEDICARE, BC ==
--- NOTE | 2019-01-14 11:58 | PET ---
EXAM: PET/CT HISTORY: Lymphoma TECHNIQUE: PET scanning with CT attenuation correction was performed from the base of the brain to the proximal thighs following the intravenous administration of 11.9 millicuries [id number]. COMPARISON: PET/CT dated September 08, 2018 CORRELATION: None FINDINGS: Bilateral distribution:The biodistribution for the exam appears acceptable. Head and neck: There is appropriate background activity within the brain. The hyper metabolic left torres bclavian lymph node seen on the prior PET/CT examination has decreased in size now measuring 6 mm with no associated increased metabolic uptake. Previously this lymph node was hypermetabolic with a p eak activity 9.07 and a mean activity of 7.65. It previously measured 1.2 cm in its greatest short axis. The other additional enlarged right subclavian lymph node previously measured 1.5 cm now measur es 1 cm. This lymph node and a peak activity of 17.7 on the prior exam now has a peak activity of 5.77. Mild increased metabolic activity is seen involving the right longus colli muscle which is nons pecific. Its peak activity is 4.28 with a mean activity of 4.11. Thorax: Hypermetabolic activity related to lymph nodes within the mediastinum both hilar regions has slightly diminished from the prior examination. Pretracheal lymph node is stable in size measuring 1 cm but now has a peak activity of 6.21 were previously had a peak activity of 24.25. Previously hyp ermetabolic right axillary lymph node has a peak activity of 2.11 which previously had activity of 2.3. No residual hypermetabolic activity is evident within the left axilla which is improved from the prior exam. The additional associated zones of hypermetabolic activity involving lymph nodes in the prevascular, AP window, subcarinal and lower posterior mediastinum all have decreased in metaboli c uptake. Abdomen and pelvis: There is expected background activity within the GI and systems.The prominent hypermetabolic portacaval lymph node previously having peak activity of 18.89 now has an peak activity at 2.25 and is significantly diminished in size now measuring 1.1 cm where previously it benedicto sured 2.3 cm. There is a residual hypermetabolic portacaval lymph node measuring 1 cm with a peak activity at 3.38. The hypermetabolic para-aortic lymph nodes have significantly decreased in size in metabolic uptake. The hypermetabolic lymph nodes involving the iliac chains bilaterally has significantly decreased in size and prominence. No residual activity is seen within these regions. No activity is seen within the region of the inguinal lymph node chains. There is mild increased activity within and left hip abductor musculature likely related to muscular contraction. Osseous structures and skin: There is mild hypermetabolic activity involving the bone marrow space of the thoracolumbar spine which may be related to treatment. IMPRESSION: Deauville category 5 with changes of partial response. There has been significant reduction in size a nd hypermetabolic uptake involving pamela stations above and below the diaphragm consistent with changes of partial response to therapy. Continued follow-up is recommended.
== END 2019-01-14 08:58 | disposition home or self-care (01) ==
LOC: PET 08:57
PROVIDERS: ATTEND Internal Medicine Hematology & Oncology
DX: C85.90 Non-Hodgkin lymphoma, unspecified, unspecified site (principal); R94.8 Abnormal results of function studies of other organs and systems
CPT/HCPCS: 78815; A9552

== ENCOUNTER 2019-03-04 07:28 | Outpatient (CLI) | payer MEDICARE, BC ==
--- NOTE | 2019-03-04 09:56 | PET ---
Exam: PET CT SKULL TO MID THIGH: COMPARISON: PET CT, 01/14/2019. HISTORY: .Diffuse large B-cell lymphoma. TECHNIQUE: A PET/CT was performed from the skull to the mid thigh after administration of 12.9 millic uries of F-18 FDG. Evaluation was performed on a [employer] workstation. FINDINGS: NECK: Interval resolution of hypermetabolic activity of the right base of neck, within the previously described right periclavicular lymph node. CHEST: Interval resolution of hypermetabolic activity within the previously documented right axillary lymph node. Within the previously demonstrated hypermetabolic pretracheal lymph node, previously measuring SUV of 6.2, there has been interval increase with SUV now measured at 7.6. Numerous additio nal hypermetabolic lymph nodes throughout the chest remain, within the right hilum, SUV 4, within the prevascular space, SUV 7.7, subcarinal, 5.3 SUV, and paraesophageal, SUV 8.1, with interval respo nse to therapy utilizing SUV, as the prior exam SUV of right hilar adenopathy was approximately 9, prevascular SUV maximum was approximately 10, subcarinal SUV was 7.4, and paraesophageal SUV was 10.6 . ABDOMEN/PELVIS: New hypermetabolic abdominal adenopathy is present,, SUV maximum 8.5, located anterio r to the proximal aspect of the left common iliac artery, and measuring 1.1 cm. SKELETON: No new hypermetabolic osseous lesions. CT images used for attenuation correction otherwise show no significant interval change.. IMPRESSION: Deauville category 5, related to new hypermetabolic abdominal adenopathy. Overall, the evaluation is an interval mixed response to therapy as there has been resolution of prio r adenopathy as well as interval reduced intensity of SUV within multiple lymph nodes, as delineated above. Results of the exam were discussed via telephone with Dr. Rose Perez. Transcribed Date/Time: 03/04/2019 10:12 AM
== END 2019-03-04 07:29 | disposition home or self-care (01) ==
LOC: PET 07:28
PROVIDERS: ATTEND Internal Medicine Hematology & Oncology
DX: C83.38 Diffuse large B-cell lymphoma, lymph nodes of multiple sites (principal); R59.0 Localized enlarged lymph nodes
CPT/HCPCS: 78815; A9552

== ENCOUNTER 2019-04-01 11:22 | Inpatient (IN) | payer MEDICARE, BC ==
--- NOTE | 2019-04-01 11:58 | RAD ---
RADIOGRAPH CHEST 1 VIEW: DATE: 04/01/2019 HISTORY: 88-year-old female with cough and fever FINDINGS: There are no airspace densities, pulmonary edema, pneumothorax, or cardiomegaly. The lateral costophr enic angles are sharp. Right IJ vascular port catheter with distal tip overlying region of confluence of brachiocephalic veins or upper SVC. IMPRESSION: 1. No acute cardiopulmonary findings. 2. Right internal jugular implantable vascular access port.
[2019-04-01 12:25] LABS: Hemoglobin 9.2 g/dL (12.0-16.0); Mean Corpuscular HGB CONC 32.2 g/dL (32.0-36.0); Mean Corpuscular Hemoglobin 24.6 pg (27.0-31.0); Mean Corpuscular Volume 76.4 fL (78.0-98.0); Platelet Count 228 thou/uL (130-400); RBC Distribution Width 15.3 % (11.5-14.5); Red Blood Cell (RBC) Count 3.75 mill/uL (4.20-5.40); White Blood Cell (WBC) Count 13.3 thou/uL (4.8-10.8)
[2019-04-01] MEDS ORDERED: Acetaminophen 500 MG TAB ONE (12:27)
[2019-04-01 12:35] LABS: ALT (SGPT) 9 U/L (8-55); AST (SGOT) 24 U/L (5-34); Alkaline Phosphatase 82 U/L (40-150); Anion Gap 16 mmol/L (10-20); BUN (Urea Nitrogen) 34 mg/dL (9.8-20.1); Bilirubin, Total 0.6 mg/dL (0.2-1.2); CK (CPK) 561 U/L (29-168); Calc. Creatinine Clearance 0 mL/min (70-130); Calcium 10.1 mg/dL (7.8-10.44); Carbon Dioxide 21 mmol/L (23-31); Chloride 103 mmol/L (98-107); Estimated GFR-MDRD 32; Globulin 2.8 g/dL (2.4-3.5); Glucose 140 mg/dL (83-110); Potassium 4.1 mmol/L (3.5-5.1); Protein, Total 6.8 g/dL (6.0-8.3); Sodium 136 mmol/L (136-145)
[2019-04-01 13:11] LABS: Anisocytosis SLIGHT = 6-15 cells (100X) (0-5/hpf); Band 8 % (5-11); Hypochromia SLIGHT = 6-15 cells (100X) (0-5/hpf); Lymphocytes 1 % (21-51); MDiff Complete? YES; Monocytes 4 % (0-10); Neutrophil 87 % (42-75); Platelet Morphology Comment Appears Adequate
[2019-04-01] MEDS ORDERED: cefTRIAXone\\ROCEPHIN 2 GM VIAL ONE (14:06)
[2019-04-01 14:30] LABS: Bilirubin Negative (Negative); Blood, Urine 2+ (Negative); Clarity Extra Turbid (Clear); Glucose, Urine (Dipstick) Normal (Negative); Leukocyte 500 Leu/uL (Negative); Nitrite Negative (Negative); Protein, Urine (Dipstick) 70 mg/dL (Neg-Trace); Squamous Epithelial 0-3 HPF (0-3); Urobilinogen Normal mg/dL (Less than 2); WBC/HPF Greater than 50 HPF (0-3)
[2019-04-01 14:38] LABS: Bacteria/HPF 4+ HPF (None Seen)
[2019-04-01 14:39] LABS: Yeast-Budding None Seen HPF (None Seen)
[2019-04-01] MEDS ORDERED: Ondansetron PF 4 MG/2 ML Vial IVP PRN (17:39)
[2019-04-01] MEDS ORDERED: Ondansetron ODT 4 MG TAB SL PRN (17:39)
[2019-04-01] MEDS: Acetaminophen 325 MG TAB PO PRN (19:43)
[2019-04-01] MEDS: Sodium Chloride 0.9% 1,000 ML IV SCH (19:51)
[2019-04-01 20:01] VITALS: BMI 32.7
[2019-04-02] MEDS ORDERED: Senokot S 8.6-50 MG TAB PO PRN (01:35)
--- NOTE | 2019-04-02 03:28 | HP ---
PRIMARY CARE PHYSICIAN: Gentry Laureano. CHIEF COMPLAINT: Fever. HISTORY OF PRESENT ILLNESS: Ms. Pearson is an 88-year-old female who reported to the emergency room today after having a fever of 102 today, reports a little bit of dizziness. says that she is a little more confused than normal. The patient is not a good historian. History obtained from ER records and from who is at the bedside. Past medical history pertinent for hypertension, stage III lymphoma. reports that she had a "booster" for her lymphoma several weeks ago and reports that Dr. Perez has told them to come back in several months. The patient denied any chills. Does report that she has some dysuria during the emergency room visit. The patient was found to have a white blood cell count of 13.3, creatinine at 1.83, which is a bump for her. The last time it was checked is March 19, 2019 and it was 1.2. Urine was turbid, positive for protein, blood, leukocyte esterase, greater than 50 white blood cell count, 4+ bacteria. Urine cultures, blood cultures. Rocephin was given in the emergency room as well as 2 L of fluid. The patient was subsequently admitted to the medical unit for further management of UTI. REVIEW OF SYSTEMS: The patient reports fever. Reports dysuria. Reports subtle dizziness today. All other systems are negative unless mentioned in the HPI. PAST MEDICAL HISTORY: Pertinent for hypertension, stage III lymphoma. PAST SURGICAL HISTORY: Back surgery x3, appendectomy, hysterectomy, bilateral knee replacements. PSYCHIATRIC HISTORY: None. SOCIAL HISTORY: Denies any alcohol or drug use. The patient has no smoking history. Lives at home with her family. KNOWN ALLERGIES: None. CURRENT MEDICATIONS: 1. Amitriptyline 100 mg p.o. at bedtime. 2. Folic acid 1 mg once a day. 3. Lipitor 20 mg p.o. at bedtime. 4. Celexa 40 mg p.o. daily. 5. Levothyroxine 50 mcg p.o. daily. 6. Tizanidine 4 mg p.o. q.i.d. p.r.n. PHYSICAL EXAMINATION: VITAL SIGNS: Blood pressure 111/92, pulse is 90, respiratory rate is 19, temp is 98.7, pO2 saturations are 94% on room air. CONSTITUTIONAL: The patient appears nontoxic. She is alert, oriented to person, knows where she is. HEENT: Head is atraumatic and normocephalic. Eyes, pupils are equally round and reactive to light, extraocular muscles are intact. ENT, mouth exam is normal, mucous membranes are moist. RESPIRATORY/CHEST: Breath sounds are clear. No signs of respiratory distress. CARDIOVASCULAR: Regular heart rate and rhythm. Heart sounds are normal. ABDOMEN: Soft, nontender. Bowel sounds are heard. EXTREMITIES: Upper extremities; normal range of motion, motor strength is normal, radial pulses equal. Lower extremities; normal range of motion, motor strength is normal, pedal pulses are equal bilaterally. NEURO: The patient is alert and oriented to person and place. Speech is normal. SKIN: Normal in color. Warm and dry. LABORATORY DATA: White blood cell count is 13.3, hemoglobin is 9.2, hematocrit is 28.7, and platelet count is 228. Chemistry; sodium is 136, potassium 4.1, chloride is 103, carbon dioxide is 21, gap is 16, BUN is 34, creatinine is 1.83, estimated GFR is 32, glucose is 140, lactic acid is 1.6, calcium is 10.1. CK is 561. Liver enzymes are unremarkable. Troponin x1 is undetectable. Urine as described above, turbid, positive for protein, blood, leukocyte esterase, white blood cell count, bacteria, casts. This has been sent off for culture. ASSESSMENT AND PLAN: 1. Sepsis with urinary source. We will continue hydration, Rocephin. Blood cultures and urine cultures have been ordered. We will monitor closely. 2. Hypothyroidism. We will check TSH, free T3 and T4 in the morning. Restart home medication. 3. Hyperlipidemia. We will restart home medication. 4. History of lymphoma. If the patient's fever, general symptoms do not improve with IV antibiotics, the patient's oncologist Dr. Solomon' consultation may be appropriate. 5. Gastrointestinal prophylaxis has been started. SCDs placed for deep venous thrombosis prophylaxis. 6. Acute kidney injury. Gentle hydration has been started, see #1. We will recheck creatinine in the a.m. 7. Case discussed with Dr. Guerrero, who agrees. 8. Hospital course dependent on clinical findings. Job ID: [id number]
[2019-04-02] MEDS: Acetaminophen 325 MG TAB PO PRN ×3 (03:55→20:56)
[2019-04-02 05:34] LABS: Anion Gap 15 mmol/L (10-20); BUN (Urea Nitrogen) 31 mg/dL (9.8-20.1); Calc. Creatinine Clearance 41 mL/min (70-130); Calcium 9.3 mg/dL (7.8-10.44); Carbon Dioxide 20 mmol/L (23-31); Chloride 105 mmol/L (98-107); Estimated GFR-MDRD 44; Glucose 123 mg/dL (83-110); Potassium 3.9 mmol/L (3.5-5.1); Sodium 136 mmol/L (136-145)
[2019-04-02] MEDS: Levothyroxine Sodium 50 MCG TAB PO SCH (05:34)
[2019-04-02 05:40] LABS: Band 16 % (5-11); Hemoglobin 9.1 g/dL (12.0-16.0); Lymphocytes 6 % (21-51); MDiff Complete? YES; Mean Corpuscular HGB CONC 32.3 g/dL (32.0-36.0); Mean Corpuscular Hemoglobin 24.7 pg (27.0-31.0); Mean Corpuscular Volume 76.5 fL (78.0-98.0); Mean Platelet Volume 9.9 fL (7.4-10.4); Monocytes 12 % (0-10); Neutrophil 66 % (42-75); Platelet Count 203 thou/uL (130-400); RBC Distribution Width 15.4 % (11.5-14.5); Red Blood Cell (RBC) Count 3.69 mill/uL (4.20-5.40); White Blood Cell (WBC) Count 16.3 thou/uL (4.8-10.8)
[2019-04-02 05:54] LABS: Free T4 (Free Thyroxine) 0.86 ng/dL (0.70-1.48); Thyroid Stimulating Hormone 1.8844 uIU/mL (0.35-4.94)
[2019-04-02] MEDS ORDERED: Famotidine 20 MG TAB PO SCH (09:00)
--- NOTE | 2019-04-02 09:39 | CT ---
CT Stone Protocol: 04/02/2019 9:00 AM HISTORY: Sepsis and bacteremia COMPARISON: None. TECHNIQUE: Multiple contiguous axial images were obtained and a CT of the abdomen and pelvis without IV contrast . Oral contrast was administered. Coronal reformats were performed. FINDINGS: This examination is limited for the evaluation of solid organs and vascular structures due to the lac k of intravenous contrast. Lower Chest: within normal limits. Abdomen: Liver: within normal limits. Bile Ducts: Normal caliber. Gallbladder: Surgically absent Pancreas: within normal limits. Spleen: within normal limits. Adrenals: within normal limits. Kidneys: 2.9 cm left renal cyst. Nonobstructing 1 mm punctate calcification in the right kidney. Ther e is questionable stranding changes adjacent to the proximal left ureter which may be from recently passed stone. Pelvis: Reproductive Organs: Status post hysterectomy. Ureters: within normal limits. Bladder: within normal limits. Bowel: Normal caliber. Mesenteric Lymph Nodes: No enlarged mesenteric lymph nodes. Peritoneum: No ascites or free air, no fluid collection. Vessels: Atherosclerotic calcifications in the aorta Retroperitoneum: within normal limits. Abdominal Wall: within normal limits. Bones: Degenerative changes in the spine. Postsurgical changes are seen in the lumbar spine. IMPRESSION: 1. Questionable stranding change adjacent to the proximal left ureter may be from recently passed kid adalid stone. 2. Left renal cyst 3. Nonobstructive right renal calcification.
[2019-04-02] MEDS: Citalopram 20 MG TAB PO SCH (09:56)
[2019-04-02] MEDS: Folic Acid 1 MG TAB PO SCH (09:57)
[2019-04-02] MEDS: Sodium Chloride 0.9% 1,000 ML IV SCH ×2 (12:37→20:56)
--- NOTE | 2019-04-02 14:20 | PRG ---
DATE OF SERVICE: 04/02/2019 PRIMARY CARE PHYSICIAN: Samra Rinaldi MD SUBJECTIVE: An 88-year-old female with hypertension and lymphoma, presented to the hospital with fever along with urinary symptoms. Workup was consistent with sepsis secondary to UTI. Blood culture this morning was positive for E coli. Symptomatically she feels somewhat better. She denies any nausea, vomiting, or diarrhea. She continues to have some urinary symptoms. No flank pain reported. REVIEW OF SYSTEMS: All other review of systems were reviewed and were found negative. CURRENT MEDICATIONS: Reviewed. 1. The patient is on ceftriaxone along with IV fluids. 2. Amitriptyline. 3. Celexa. 4. Folic acid. 5. Levothyroxine. 6. Lipitor. OBJECTIVE: GENERAL: An 88-year-old female, ill-appearing. VITAL SIGNS: Temperature 99, pulse rate of 90, respirations 18, blood pressure 143/65, O2 saturation 95% on room air. HEENT: Head, atraumatic and normocephalic. Sclerae anicteric. Moist mucous membranes. No oral lesion. NECK: Supple. No JVD appreciated. No carotid bruit. LUNGS: Clear to auscultation bilaterally. No wheezing, rales, or rhonchi. HEART: S1 and S2 present. Regular rate and rhythm. No rubs or gallops appreciated. ABDOMEN: Soft, nontender. Bowel sounds present. No rebound or guarding. No costovertebral angle tenderness. EXTREMITIES: No edema or calf tenderness. PSYCHIATRY: The patient is alert, awake, and oriented x3. Normal affect. NEUROLOGIC: Grossly nonfocal. PERIPHERAL VASCULAR: Radial pulses palpable bilaterally. MUSCULOSKELETAL: No joint swelling tenderness. LABORATORY DATA: Creatinine down to 1.37 from 1.83. TSH 1.88. WBC 16.3 with 16% bandemia, hemoglobin 9.1, hematocrit 28.2, platelet count 203. Blood culture one of two was positive for E coli. Urine culture, positive for E coli. Sensitivities pending. IMAGING STUDIES: Chest x-ray by my review was negative for infiltrate. CT scan of the abdomen and pelvis, renal stone protocol done today, showed questionable standing changes adjacent to the proximal left ureter may be from recently passed kidney stone with left renal cyst, nonobstructive right renal calcification. IMPRESSION: 1. Sepsis with acute organ dysfunction secondary to Escherichia coli urinary tract infection with Escherichia coli bacteremia. 2. Acute kidney injury on chronic kidney disease, stage 2. 3. Questionable stranding in the proximal left ureter may be from recently passed kidney stone. 4. Left renal cyst. 5. Hypothyroidism. 6. Nonobstructive right renal calcification. 7. Hyperlipidemia. 8. History of lymphoma, followed by Dr. Solomon. 9. Chronic anemia. 10. Obesity with a BMI of 32.7. 11. Depression, mild, stable. PLAN: Ceftriaxone dose will be increased to 2 g daily. We will continue IV fluids at 75 mL an hour. We will continue current home medications. We will await sensitivities. Continue physical therapy evaluation. We will recheck labs in a.m. DVT prophylaxis with SCDs. The patient was advised to ambulate. We will start Lovenox in a.m. if needed. Plan was discussed with the patient and the family in detail. Job ID: [id number]
[2019-04-02] MEDS: cefTRIAXone\\ROCEPHIN 2 GM in Sodium Chloride 0.9% 100 ML IVPB SCH (14:36)
[2019-04-02] MEDS ORDERED: cefTRIAXone\\ROCEPHIN 1 GM in Sodium Chloride 0.9% 100 ML IVPB SCH (16:00)
[2019-04-02] MEDS: Amitriptyline HCl 100 MG TAB PO SCH (20:55)
[2019-04-02] MEDS: Saccharomyces boulardii 250 MG CAP PO SCH (20:55)
[2019-04-02] MEDS: Senokot S 8.6-50 MG TAB PO SCH (20:55)
[2019-04-02] MEDS: Atorvastatin Calcium 20 MG TAB PO SCH (20:55)
[2019-04-03] MEDS: Levothyroxine Sodium 50 MCG TAB PO SCH (05:43)
[2019-04-03 05:46] LABS: ALT (SGPT) 14 U/L (8-55); AST (SGOT) 27 U/L (5-34); Albumin 3.1 g/dL (3.4-4.8); Alkaline Phosphatase 76 U/L (40-150); Anion Gap 10 mmol/L (10-20); BUN (Urea Nitrogen) 27 mg/dL (9.8-20.1); Bilirubin, Total 0.2 mg/dL (0.2-1.2); Calc. Creatinine Clearance 47 mL/min (70-130); Calcium 9.7 mg/dL (7.8-10.44); Carbon Dioxide 23 mmol/L (23-31); Chloride 107 mmol/L (98-107); Estimated GFR-MDRD 51; Globulin 3.1 g/dL (2.4-3.5); Glucose 87 mg/dL (83-110); Magnesium 1.7 mg/dL (1.6-2.6); Potassium 3.8 mmol/L (3.5-5.1); Protein, Total 6.2 g/dL (6.0-8.3); Sodium 136 mmol/L (136-145)
[2019-04-03 06:32] LABS: Band 10 % (5-11); Hemoglobin 8.8 g/dL (12.0-16.0); Lymphocytes 9 % (21-51); MDiff Complete? YES; Mean Corpuscular HGB CONC 30.8 g/dL (32.0-36.0); Mean Corpuscular Hemoglobin 24.4 pg (27.0-31.0); Mean Corpuscular Volume 79.2 fL (78.0-98.0); Monocytes 11 % (0-10); Neutrophil 69 % (42-75); Platelet Count 211 thou/uL (130-400); RBC Distribution Width 15.5 % (11.5-14.5); Red Blood Cell (RBC) Count 3.62 mill/uL (4.20-5.40); White Blood Cell (WBC) Count 10.3 thou/uL (4.8-10.8)
[2019-04-03] MEDS: Senokot S 8.6-50 MG TAB PO SCH ×2 (08:47→20:44)
[2019-04-03] MEDS: Folic Acid 1 MG TAB PO SCH (08:48)
[2019-04-03] MEDS: Citalopram 20 MG TAB PO SCH (08:48)
[2019-04-03] MEDS: Enoxaparin Sodium 30 MG/0.3 ML SYRINGE SC SCH (08:48)
[2019-04-03] MEDS: Sodium Chloride 0.9% 1,000 ML IV SCH (12:13)
--- NOTE | 2019-04-03 13:28 | PDOC.PN ---
- Subjective Encounter Start Date: 04/03/19 Encounter Start Time: 13:26 Doing well. No complaints. She says she is eating ok, but family challenges that. Family says she had a headache, but she denies any headache now. Generally gets up and around at home. Has not been up since admission per her report. - Objective Vital Signs & Weight: Vital Signs (12 hours) Temp Pulse Resp BP Pulse Ox 04/03/19 12:00 98 F 81 17 124/60 100 04/03/19 07:07 98.4 F 85 17 139/64 94 L 04/03/19 04:00 98.3 F 87 16 137/60 92 L Weight Admit Weight 196 lb 9.6 oz Weight 196 lb 9.6 oz I&O: 04/02/19 04/03/19 04/04/19 06:59 06:59 06:59 Intake Total 841 754 Balance 841 754 Result Diagrams: 04/03/19 04:50 04/03/19 04:50 Phys Exam - Physical Examination Constitutional: NAD Respiratory: no wheezing, no rales, no rhonchi Cardiovascular: RRR, no significant murmur, no rub Gastrointestinal: soft, non-tender, no distention, positive bowel sounds Musculoskeletal: no edema Neurological: non-focal Psychiatric: normal affect, A&O x 3 Skin: normal turgor Dx/Plan (1) Sepsis Code(s): A41.9 - SEPSIS, UNSPECIFIED ORGANISM Status: Acute (2) E-coli UTI Code(s): N39.0 - URINARY TRACT INFECTION, SITE NOT SPECIFIED; B96.20 - UNSP ESCHERICHIA COLI THE CAUSE OF DISEASES CLASSD ELSWHR Status: Acute (3) E coli bacteremia Code(s): R78.81 - BACTEREMIA Status: Acute (4) Hypertension Code(s): I10 - ESSENTIAL (PRIMARY) HYPERTENSION Status: Chronic (5) Lymphoma Status: Chronic (6) Obesity (BMI 30.0-34.9) Code(s): E66.9 - OBESITY, UNSPECIFIED Status: Chronic - Plan * Continue IV Rocephin. * Had very low grade fever last evening. Given her immune-compromised state, will want her to be afebrile for 24 hours and then consider a change to po abx. * E coli is garrison sensitive with good po options. * Ambulate. * If she is afeb tomorrow and can ambulate, will consider discharge.
[2019-04-03] MEDS: cefTRIAXone\\ROCEPHIN 2 GM in Sodium Chloride 0.9% 100 ML IVPB SCH (14:49)
[2019-04-03] MEDS: Amitriptyline HCl 100 MG TAB PO SCH (20:44)
[2019-04-03] MEDS: Saccharomyces boulardii 250 MG CAP PO SCH (20:44)
[2019-04-03] MEDS: Atorvastatin Calcium 20 MG TAB PO SCH (20:44)
[2019-04-04] MEDS: Sodium Chloride 0.9% 1,000 ML IV SCH ×2 (06:17→15:26)
[2019-04-04] MEDS: Levothyroxine Sodium 50 MCG TAB PO SCH (06:18)
[2019-04-04] MEDS: Enoxaparin Sodium 30 MG/0.3 ML SYRINGE SC SCH (09:56)
[2019-04-04] MEDS: Senokot S 8.6-50 MG TAB PO SCH (09:56)
[2019-04-04] MEDS: Folic Acid 1 MG TAB PO SCH (09:56)
[2019-04-04] MEDS: Citalopram 20 MG TAB PO SCH (09:56)
[2019-04-04] MEDS: cefTRIAXone\\ROCEPHIN 2 GM in Sodium Chloride 0.9% 100 ML IVPB SCH (14:19)
[2019-04-04 15:51] VITALS: BP 145/72; TEMP 98.2
--- NOTE | 2019-04-05 02:28 | DIS ---
DATE OF ADMISSION: 04/01/2019 DATE OF DISCHARGE: 04/04/2019 DISCHARGE DIAGNOSES: 1. Urinary tract infection growing E coli. 2. Sepsis. 3. Escherichia coli bacteremia. 4. Hypertension. 5. History of lymphoma. 6. Obesity. HISTORY OF PRESENT ILLNESS: This patient is an 88-year-old female with non-Hodgkin's lymphoma who has been treated with more of a palliative regimen by Dr. Solomon. The patient presented to the emergency department with a fever up to 102, having a bit of dizziness. Her felt she was a little more confused than usual. She did admit to some dysuria. Urinalysis was positive. White count was 13.3. The patient was diagnosed with sepsis secondary to urinary tract infection, hypothyroidism, hyperlipidemia, history of lymphoma, and was felt to have a bit of acute kidney injury on chronic kidney disease. She was admitted to the hospital, started on IV fluids and broad spectrum antibiotics. Urine ultimately grew pansensitive E coli as did 2/2 blood cultures. The patient's fever abated promptly and she was maintained on IV antibiotics. She felt that her symptoms had resolved. She was eating, although the family was not sure she was eating a great deal. She was able to get up around a bit at home. The patient has felt that she was comfortable with discharge. Her family had some concerns; however, the patient is on home health and has physical therapy at home. I discussed the situation with the nurse. Obviously, the next step up would be some type of skilled facility. However, medically, the patient was otherwise stable for discharge. PHYSICAL EXAMINATION: VITAL SIGNS: Temperature is 98.2, pulse 80, respirations 18, O2 saturation 100% on room air, and BP 145/72. GENERAL: The patient was awake, alert and conversant, although not very talkative. HEART: Regular without murmurs. LUNGS: Clear. ABDOMEN: Benign. EXTREMITIES: No edema. DISPOSITION: The patient is discharged to home. She should resume home health and home physical therapy as was previously ordered. ACTIVITY: As tolerated. DIET: She has no dietary restrictions. MEDICATIONS: She will be on Cipro 250 mg b.i.d. Continue with her home medications includin. Synthroid. 2. Lipitor. 3. Elavil. 4. Zanaflex. 5. Folvite. 6. Celexa. FOLLOWUP: She is to follow up with her primary care provider, Dr. Rinaldi, and she is to follow up with Dr. Solomon as scheduled. The case was discussed with Dr. Solomon at the time of her discharge, who was in agreement with the plan. Also of note, the patient did have a CT abdomen and pelvis showed questionable stranding change adjacent to the proximal left ureter, which could possibly be explained by a recently passed stone, some nonobstructive right renal calcifications, and a small left renal cyst. TIME SPENT: Total time in discharge planning activities including [id number] time with the patient's family was 35 minutes. Job ID: [id number]
== END 2019-04-04 16:41 | disposition home or self-care (01) | DRG 872 ==
LOC: ERS 11:22 → T4-B 17:39
PROVIDERS: ADMIT Internal Medicine; ATTEND Internal Medicine
DX: A41.51 Sepsis due to Escherichia coli [E. coli] (principal); N39.0 Urinary tract infection, site not specified; N17.9 Acute kidney failure, unspecified; C85.90 Non-Hodgkin lymphoma, unspecified, unspecified site; I10 Essential (primary) hypertension; F32.9 Major depressive disorder, single episode, unspecified; E78.5 Hyperlipidemia, unspecified; E03.9 Hypothyroidism, unspecified; R65.20 Severe sepsis without septic shock; N28.1 Cyst of kidney, acquired; E66.9 Obesity, unspecified; D63.0 Anemia in neoplastic disease; Z79.899 Other long term (current) drug therapy; Z68.32 Body mass index [BMI] 32.0-32.9, adult
CPT/HCPCS: 36415; 51701; 71045; 74176; 80048; 80053; 81003; 81015; 82550; 83605; 83735; 84439; 84443; 84481; 84484; 85025; 87040; 87077; 87086; 87149; 87186; 87804; 96361; 96365; A4353; J0696; J1642; J1650; J2405; J3490

== ENCOUNTER 2019-05-29 13:47 | Emergency (ER) | payer MEDICARE, BC ==
[2019-05-29 14:25] LABS: Hemoglobin 8.7 g/dL (12.0-16.0); Mean Corpuscular HGB CONC 32.2 g/dL (32.0-36.0); Mean Corpuscular Hemoglobin 24.4 pg (27.0-31.0); Mean Corpuscular Volume 75.9 fL (78.0-98.0); RBC Distribution Width 16.9 % (11.5-14.5); Red Blood Cell (RBC) Count 3.56 mill/uL (4.20-5.40); White Blood Cell (WBC) Count 7.6 thou/uL (4.8-10.8)
--- NOTE | 2019-05-29 14:32 | RAD ---
Chest one view: HISTORY: Chest pains and difficulty breathing COMPARISON: 04/01/2019 FINDINGS: Left central line and injection port, the tip of the central line has backed up several centimeters w hen compared to the prior exam. Heart size is normal. The lungs are clear. IMPRESSION: No significant acute intrathoracic disease. Atherosclerosis of the aorta. The tip of the right centra l line has backed up several CM from the prior 04/01/2019 study.
--- NOTE | 2019-05-29 14:33 | RAD ---
EXAM: Right hip 2 views: HISTORY: Right hip pain COMPARISON: None FINDINGS: Degenerative changes. No acute fracture or dislocation or other significant acute osseous abnormality. IMPRESSION: No significant acute process.
[2019-05-29 14:46] LABS: Band 14 % (5-11); Eosinophils 3 % (0-10); Lymphocytes 11 % (21-51); MDiff Complete? YES; Mean Platelet Volume 6.7 fL (7.4-10.4); Microcytosis SLIGHT = 6-15 cells (100X) (0-5/hpf); Monocytes 16 % (0-10); Neutrophil 54 % (42-75); Platelet Count 114 thou/uL (130-400); Platelet Morphology Comment Appears Decreased; Polychromasia SLIGHT = 2-3 cells (100X) (0-2/hpf); Reactive Lymphocytes 2 % (0-10); Target Cells MODERATE= 6-15 cells (100X) (0-1/hpf); Tear Drops SLIGHT = 2-5 cells (100X) (0-1/hpf)
[2019-05-29 14:47] LABS: ALT (SGPT) 8 U/L (8-55); AST (SGOT) 12 U/L (5-34); Albumin 3.7 g/dL (3.4-4.8); Alkaline Phosphatase 98 U/L (40-150); Anion Gap 12 mmol/L (10-20); BUN (Urea Nitrogen) 30 mg/dL (9.8-20.1); Bilirubin, Total 0.3 mg/dL (0.2-1.2); Calc. Creatinine Clearance 0 mL/min (70-130); Calcium 9.3 mg/dL (7.8-10.44); Carbon Dioxide 25 mmol/L (23-31); Chloride 105 mmol/L (98-107); Estimated GFR-MDRD 50; Globulin 2.2 g/dL (2.4-3.5); Glucose 113 mg/dL (83-110); Potassium 4.2 mmol/L (3.5-5.1); Protein, Total 5.9 g/dL (6.0-8.3); Sodium 138 mmol/L (136-145)
== END 2019-05-29 16:30 | disposition home or self-care (01) ==
LOC: ERS 13:47
DX: M25.551 Pain in right hip (principal); E78.5 Hyperlipidemia, unspecified; I10 Essential (primary) hypertension; Z79.899 Other long term (current) drug therapy
CPT/HCPCS: 36415; 71045; 80053; 84484; 85025; 93005; 94760

== ENCOUNTER 2019-07-02 13:26 | Inpatient (IN) | payer MEDICARE, BC ==
[2019-07-02 14:17] LABS: Hemoglobin 6.6 g/dL (12.0-16.0); Mean Corpuscular HGB CONC 32.8 g/dL (32.0-36.0); Mean Corpuscular Hemoglobin 24.8 pg (27.0-31.0); Mean Corpuscular Volume 75.6 fL (78.0-98.0); RBC Distribution Width 19.2 % (11.5-14.5); Red Blood Cell (RBC) Count 2.65 mill/uL (4.20-5.40); White Blood Cell (WBC) Count 4.2 thou/uL (4.8-10.8)
--- NOTE | 2019-07-02 14:26 | RAD ---
RADIOGRAPH CHEST 1 VIEW: DATE: 07/02/2019 HISTORY: 88-year-old female with chest pain FINDINGS: There are no airspace densities, pulmonary edema, pneumothorax, or cardiomegaly. The lateral costophr enic angles are sharp. Right-sided implantable vascular access port overlies lateral aspect of right mid chest, with catheter ascending to right neck where it takes a loop in the right medial supr aclavicular region, with distal tip slightly inferior to the right clavicular head, in the expected region near the confluence between the right internal jugular vein and right subclavian vein. No inte rval change overall since 05/29/2019. The catheter tip has been superiorly retracted distance of approximately 2.5 cm compared to 04/01/2019. IMPRESSION: 1. No acute cardiopulmonary findings. 2. Right-sided implantable vascular access port with distal tip location as described above. 3. No interval change since 05/29/2019.
[2019-07-02 14:33] LABS: ALT (SGPT) 9 U/L (8-55); AST (SGOT) 15 U/L (5-34); Albumin 3.2 g/dL (3.4-4.8); Alkaline Phosphatase 73 U/L (40-110); Anion Gap 13 mmol/L (10-20); BUN (Urea Nitrogen) 26 mg/dL (9.8-20.1); Bilirubin, Total 0.6 mg/dL (0.2-1.2); Calc. Creatinine Clearance 0 mL/min (70-130); Calcium 9.7 mg/dL (7.8-10.44); Carbon Dioxide 27 mmol/L (23-31); Chloride 99 mmol/L (98-107); Estimated GFR-MDRD 44; Globulin 2.7 g/dL (2.4-3.5); Glucose 119 mg/dL (83-110); Potassium 4.2 mmol/L (3.5-5.1); Protein, Total 5.9 g/dL (6.0-8.3); Sodium 135 mmol/L (136-145)
[2019-07-02 14:40] LABS: Mean Platelet Volume 9.4 fL (7.4-10.4); Platelet Count 41 thou/uL (130-400)
[2019-07-02 14:41] LABS: Anisocytosis MODERATE=16-30 cells (100X) (0-5/hpf); Band 15 % (5-11); Eosinophils 1 % (0-10); Hypochromia SLIGHT = 6-15 cells (100X) (0-5/hpf); Lymphocytes 24 % (21-51); MDiff Complete? YES; Metamyelocyte 7 % (0-0); Microcytosis SLIGHT = 6-15 cells (100X) (0-5/hpf); Monocytes 16 % (0-10); Myelocyte 2 % (0-0); Neutrophil 30 % (42-75); Nucleated RBC 1 % (0); Platelet Morphology Comment Appears Decreased; Poikilocytosis SLIGHT = 6-15 cells (100X) (0-5/hpf); Polychromasia MODERATE = 3-4 cells (100X) (0-2/hpf); Reactive Lymphocytes 4 % (0-10); Schistocytes SLIGHT = 2-5 cells (100X) (0-1/hpf); Spherocytes SLIGHT = 1-5 cells (100X) (None Seen); Target Cells SLIGHT = 2-5 cells (100X) (0-1/hpf)
[2019-07-02 15:15] LABS: Bilirubin Negative (Negative); Blood, Urine Negative (Negative); Clarity Clear (Clear); Glucose, Urine (Dipstick) Normal (Negative); Leukocyte Negative Leu/uL (Negative); Nitrite Negative (Negative); Protein, Urine (Dipstick) Negative (Neg-Trace)
[2019-07-02 16:03] LABS: Iron 48 ug/dL (50-170); Iron Binding Capacity, Total 221 mcg/dL (265-497)
[2019-07-02] MEDS ORDERED: Acetaminophen 325 MG TAB PO PRN (16:43)
[2019-07-02] MEDS ORDERED: Guaifenesin DM 100-10/5 ML UDCUP PO PRN (16:43)
[2019-07-02] MEDS ORDERED: Bisacodyl 10 MG SUPP PR PRN (16:43)
[2019-07-02] MEDS ORDERED: tiZANidine HCl 4 MG TAB PO PRN (16:43)
[2019-07-02] MEDS ORDERED: Senokot S 8.6-50 MG TAB PO PRN (16:43)
--- NOTE | 2019-07-02 19:02 | HP ---
REASON FOR ADMISSION: Severe anemia, generalized weakness, fever of 100 degrees with the patient being immunosuppressed. HISTORY OF PRESENTING ILLNESS: The patient gives history of feeling sick for last 2 days. She has a dry cough, but no expectoration. She is also not eating from last 2 to 3 days now. The patient apparently had a seizure-like episode last night with vomiting. She has known history of seizures. No obvious bleeding per rectum or black stool per the patient. The patient does not recall when her last colonoscopy or an upper endoscopy was. No complaints of urinary frequency or urgency. The patient has dry cough but no expectoration. No history of fall. No new back pain or any aches anywhere. She has generalized weakness. 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 She has received 5 cycles of active chemotherapy and she is on Rituxan every 2 months as a palliative measure. Hypertension, back surgery x3, hysterectomy, and bilateral knee replacements. 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 CURRENT MEDICATIONS: The patient is on: 1. Rituxan every 2 months infusion. 2. Amitriptyline 100 mg p.o. at bedtime. 3. Atorvastatin 20 mg p.o. q.p.m. 4. Citalopram 40 mg p.o. daily. 5. Keppra 500 mg p.o. twice daily. 6. Spironolactone with hydrochlorothiazide 25/25 one tablet daily. ALLERGIES: NO KNOWN DRUG ALLERGIES. PERSONAL HISTORY: Does not abuse alcohol or drugs. No history of smoking. She lives with her . They have been 64 years now. They have 5 children. FAMILY HISTORY: Mother in her 90s of natural causes. Father in his 70s from unknown cause. CODE STATUS: Do not attempt to resuscitate. This was discussed with the patient and her , Mr. Ball at bedside. REVIEW OF SYSTEMS: CONSTITUTIONAL: Negative for weight loss or gain, ability to conduct usual activities. SKIN: Negative for rash, itching. EYES: Negative for double vision, pain. ENT/MOUTH: Negative for nose bleeding, neck stiffness, pain, tenderness. CARDIOVASCULAR: Negative for palpitations, dyspnea on exertion, orthopnea. RESPIRATORY: Negative for shortness of breath, wheezing, cough, hemoptysis, fever or night sweats. GASTROINTESTINAL: Negative for poor appetite, abdominal pain, heartburn, nausea , vomiting, constipation, or diarrhea. GENITOURINARY: Negative for urgency, frequency, dysuria, nocturia. MUSCULOSKELETAL: Negative for pain, swelling. NEUROLOGIC/PSYCHIATRIC: Negative for anxiety, depression. ALLERGY/IMMUNOLOGIC: Negative for skin rash, bleeding tendency. PHYSICAL EXAMINATION: GENERAL: The patient is an 88-year-old female who is currently not in any acute distress. VITAL SIGNS: Blood pressure 124/58, pulse 90 per minute, respiratory rate 18 per minute, temperature 100.3 degrees Fahrenheit, and saturating 100% on room air. NECK: Supple. No elevated JVD. HEENT: Eyes; extraocular muscles intact. Pupils reacting to light. Oral cavity, mucous membranes are moist. No exudates or congestion. CARDIOVASCULAR: S1 and S2 heard, regular rhythm. RESPIRATORY: Air entry 1+ bilateral. No rales or rhonchi. ABDOMEN: Soft. Bowel sounds heard. No tenderness, rigidity, or guarding. EXTREMITIES: No peripheral edema or calf tenderness. VASCULAR: Peripheral pulses 1+ bilateral. No ischemic ulcerations or gangrene. CENTRAL NERVOUS SYSTEM: No gross focal deficits noted. The patient is alert, awake, and the patient is fairly oriented. PSYCHIATRIC: The patient's mood is euthymic. No hallucinations or delusions. LABORATORY DATA: H and H 6.6 and 20, MCV is 75, white count of 4.2, RDW is 19, platelet count is 41, 30% neutrophils, 24% lymphocytes, 16% monocytes, and 15% bands. BUN 26, creatinine 1.3, serum bicarb 27, serum glucose 119, lactic acid 1.6. AST, ALT, alkaline phosphatase within normal limits. Serum iron 48, ferritin 1072. Albumin is 3.2. LDH is 287. UA is negative for any infection. Influenza A and B antigens are negative. Chest x-ray done shows no acute cardiopulmonary findings. Has a MediPort in the right chest. EKG done shows normal sinus rhythm at 83 beats per minute. CLINICAL IMPRESSION AND PLAN: The patient will be admitted to Medical/Oncology floor for anemia, thrombocytopenia, likely all related to lymphoma. She is receiving Rituxan every 2 months or so from Dr. Solomon' office. This appears to be a palliative measure as she cannot tolerate full dose chemotherapy for large B-cell lymphoma, which appears to be aggressive per Dr. Solomon' prior dictation. She also had a fever of 100 degrees and the patient is immunosuppressed. We will obtain blood and urine cultures. A unit of packed cell will be transfused. We will place her empirically on cefepime and vancomycin for now. We will obtain consultations with Dr. Solomon, her primary oncologist, Dr. Dennis Moore for GI if her serial H and H keeps dropping for possible intervention. She has had prior history of esophageal stricture, likely with 2 dilatations in the past, and currently she is not able to eat or drink. It is unclear if this esophageal stricture has gotten worse. We will continue her home dose of Elavil, Lipitor, citalopram, folic acid, Synthroid, and tizanidine as before. We will continue to closely monitor her on medical floor. Job ID: [id number] [facility]
[2019-07-02] MEDS: Atorvastatin Calcium 20 MG TAB PO SCH (20:24)
[2019-07-02 20:41] VITALS: BMI 29.9
[2019-07-02] MEDS ORDERED: Vancomycin HCl 1.5 GM in Sodium Chloride 0.9% 250 ML 300 ML IVPB SCH (21:00)
[2019-07-02] MEDS ORDERED: Vancomycin HCl 1 GM in Premix Bag 1 BAG IVPB SCH (21:00)
[2019-07-02] MEDS: Amitriptyline HCl 100 MG TAB PO SCH (21:16)
[2019-07-03] MEDS: Cefepime 1 GM in Sodium Chloride 0.9% 100 ML IVPB SCH ×3 (00:22→22:01)
[2019-07-03] MEDS: Levothyroxine Sodium 50 MCG TAB PO SCH (05:21)
[2019-07-03 08:06] LABS: Anion Gap 10 mmol/L (10-20); BUN (Urea Nitrogen) 23 mg/dL (9.8-20.1); Calc. Creatinine Clearance 47 mL/min (70-130); Calcium 9.4 mg/dL (7.8-10.44); Carbon Dioxide 28 mmol/L (23-31); Chloride 102 mmol/L (98-107); Estimated GFR-MDRD 54; Glucose 94 mg/dL (83-110); Potassium 3.9 mmol/L (3.5-5.1); Sodium 136 mmol/L (136-145)
[2019-07-03 08:21] LABS: Hemoglobin 8.7 g/dL (12.0-16.0); Mean Corpuscular HGB CONC 32.6 g/dL (32.0-36.0); Mean Corpuscular Hemoglobin 25.3 pg (27.0-31.0); Mean Corpuscular Volume 77.6 fL (78.0-98.0); RBC Distribution Width 19.9 % (11.5-14.5); Red Blood Cell (RBC) Count 3.45 mill/uL (4.20-5.40)
[2019-07-03] MEDS: Folic Acid 1 MG TAB PO SCH (08:25)
[2019-07-03] MEDS: Citalopram 20 MG TAB PO SCH (08:25)
[2019-07-03] MEDS: Famotidine 20 MG TAB PO SCH (08:25)
[2019-07-03 08:30] LABS: Anisocytosis SLIGHT = 6-15 cells (100X) (0-5/hpf); Band 6 % (5-11); Hypochromia SLIGHT = 6-15 cells (100X) (0-5/hpf); Large Platelets SLIGHT; Lymphocytes 12 % (21-51); MDiff Complete? YES; Mean Platelet Volume 11.8 fL (7.4-10.4); Metamyelocyte 2 % (0-0); Monocytes 19 % (0-10); Neutrophil 57 % (42-75); Ovalocytes SLIGHT = 2-5 cells (100X) (0-1/hpf); Platelet Count 32 thou/uL (130-400); Platelet Morphology Comment Appears Decreased; Poikilocytosis SLIGHT = 6-15 cells (100X) (0-5/hpf); Polychromasia SLIGHT = 2-3 cells (100X) (0-2/hpf); Reactive Lymphocytes 4 % (0-10); Schistocytes SLIGHT = 2-5 cells (100X) (0-1/hpf); Target Cells SLIGHT = 2-5 cells (100X) (0-1/hpf); White Blood Cell (WBC) Count 4.2 thou/uL (4.8-10.8)
--- NOTE | 2019-07-03 10:46 | CON ---
DATE OF CONSULTATION: 07/03/2019 REQUESTING PHYSICIAN: Dr. Arnett. REASON FOR CONSULTATION: Symptomatic anemia. HISTORY OF PRESENT ILLNESS: Nathalie Pearson is a very pleasant 88-year-old woman. 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 She has undergone palliative chemotherapy and is continuing on rituximab. She also has a diagnosis of sickle cell trait. Evidently, she has had a prior colonoscopy in 2004 as well as EGD with esophageal dilation back in 2005, though she cannot recall where this occurred and I do not have any of the primary records on it. Again, evidently, she was diagnosed with lymphoma based on endoscopic ultrasound of a pancreatic lesion early this year, and again I do not have the reports on that. She is DNR status. She was admitted to the hospital yesterday with a couple of days of dry cough, reduced appetite, and generalized weakness. She was found to have a low-grade fever on admission of 100.3, as well as multiple cytopenias. She was started on empiric antibiotics with vancomycin and cefepime. She was noted to be anemic with hemoglobin 6.6, baseline is 8 to 9; after 1 unit RBC transfusion, hemoglobin is up to 8.7. She has remained hemodynamically stable. She has not passed any melena or hematochezia. She says that her appetite has not been great, but on the other hand, she denies any dysphagia, abdominal pain, nausea, or weight loss. Notably, she has significant thrombocytopenia with platelets of 32. REVIEW OF SYSTEMS: Full review of systems including constitutional, head, eyes, ears, nose, throat, GI, , cardiovascular, respiratory, musculoskeletal, and neurologic systems is negative except as noted in the HPI. PAST MEDICAL HISTORY: 1. Large-cell lymphoma, diagnosed in September 2018, currently on palliative chemotherapy with rituximab. 2. Sickle cell trait. 3. Hypertension. 4. Back surgery x3. 5. Appendectomy. 6. Hysterectomy. 7. Cholecystectomy. 8. Bilateral knee replacement. 9. EGD with esophageal dilation, 2005, per report. 10. Colonoscopy, 2004, per report. FAMILY HISTORY: Noncontributory. SOCIAL HISTORY: The patient is DNR status. No smoking, alcohol, or drug use. ALLERGIES: NO KNOWN DRUG ALLERGIES. OUTPATIENT MEDICATIONS: Rituxan every two months infusion, amitriptyline 100 mg by mouth at bedtime, atorvastatin 20 mg p.o. every evening, citalopram, Keppra, and spironolactone/hydrochlorothiazide. PHYSICAL EXAMINATION: VITAL SIGNS: Temperature 98.6, pulse 78, blood pressure 104/66, and 95% oxygen saturation on room air. GENERAL: An 88-year-old woman, lying in bed comfortably, in no distress. Mental, alert and oriented; pleasant and conversational. She can give a detailed description of any current symptoms, though there are some details of more remote history she cannot recall. SKIN: No jaundice. No rashes were palpable. HEENT: Eyes, no scleral icterus. Extraocular movements intact. ENT, mucous membranes moist. No oral lesions. LYMPH: No submandibular or supraclavicular lymphadenopathy. THYROID: Nontender to palpation. HEART: Regular rate and rhythm. LUNGS: Clear to auscultation bilaterally. ABDOMEN: Bowel sounds are present. Soft and nontender to palpation. EXTREMITIES: No peripheral edema. VESSELS: Radial pulses, 2+ bilaterally. NEUROLOGIC: Cranial nerves II through XII are intact bilaterally. No focal deficits. LABORATORY STUDIES: WBC 4.2; hemoglobin initially 6.6, now up to 8.7 after 1 unit RBC transfusion; MCV was 75.6, and platelets are only 32. Sodium 136, potassium 3.9, BUN 23, creatinine 1.15, total bilirubin 0.6, alkaline phosphatase 73, AST 15, ALT 9, albumin 3.2, LDH 287, ferritin 1072, iron 48, TIBC 221. Urinalysis negative. Urine culture, no growth today. Flu swab, negative. IMAGING STUDIES: Chest x-ray shows right vascular access port, otherwise no acute processes. ASSESSMENT/PLAN: 1. Anemia, appears multifactorial. The patient has diagnosis of sickle cell trait, underlying diagnosis of lymphoma, getting rituximab infusions. I note her iron studies are mixed, not really consistent with iron deficiency. She has no overt gastrointestinal bleeding. Her anemia is in conjunction with a severe thrombocytopenia. 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 The patient really does not report any dysphagia regardless of history of esophageal stricture, so I do not feel upper endoscopy is warranted for that reason either. Even if she had significant esophageal stricture, I would not be able to perform esophageal dilation with such a degree of thrombocytopenia. 2. GI will sign off at this time, but please call back anytime with questions or concerns. Job ID: [id number]
--- NOTE | 2019-07-03 11:51 | PDOC.HOSPP ---
- Subjective Encounter Date: 07/03/19 Encounter Time: 11:50 Subjective: Denies complaints. Says she feels fine. Cannot say if she feels any better than when she got here. - Objective Vital Signs & Weight: Vital Signs (12 hours) Temp Pulse Resp BP Pulse Ox 07/03/19 08:45 95 07/03/19 07:45 98.6 F 78 16 104/66 95 07/03/19 04:59 98.4 F 82 18 124/69 95 Weight Weight 185 lb 6.54 oz I&O: 07/02/19 07/03/19 07/04/19 06:59 06:59 06:59 Intake Total 970 Balance 970 Result Diagrams: 07/03/19 07:34 07/03/19 07:34 Hospitalist ROS - Medication Medications: Active Medications Generic Name Dose Route Start Last Admin Trade Name Freq PRN Reason Stop Dose Admin Amitriptyline HCl 100 mg 07/02/19 21:00 07/02/19 21:16 Elavil PO 100 mg HS ELIANA Administration Atorvastatin Calcium 20 mg 07/02/19 21:00 07/02/19 20:24 Lipitor PO 20 mg HS ELIANA Administration Citalopram Hydrobromide 40 mg 07/03/19 09:00 07/03/19 08:25 Celexa PO 40 mg DAILY ELIANA Administration Famotidine 20 mg 07/03/19 09:00 07/03/19 08:25 Pepcid PO 20 mg DAILY ELIANA Administration Folic Acid 1 mg 07/03/19 09:00 07/03/19 08:25 Folvite PO 1 mg DAILY ELIANA Administration Cefepime HCl 1 gm/ Sodium 100 mls @ 200 mls/hr 07/02/19 23:00 07/03/19 11:33 Chloride IVPB 100 mls 1100,2300 ELIANA Administration Levothyroxine Sodium 50 mcg 07/03/19 06:00 07/03/19 05:21 Synthroid PO 50 mcg 0600 ELIANA Administration - Exam General Appearance: NAD, awake alert Neck: supple, symmetric, no JVD, no thyromegaly, no lymphadenopathy, no carotid bruit Heart: RRR, no murmur, no gallops, no rubs, normal peripheral pulses Respiratory: CTAB, no wheezes, no rales, no ronchi, normal chest expansion, no tachypnea, normal percussion Gastrointestinal: soft, non-tender, non-distended, normal bowel sounds, no palpable masses, no hepatomegaly, no splenomegaly, no bruit Extremities: no cyanosis, no clubbing, no edema Musculoskeletal: normal tone Psychiatric: normal affect, normal behavior Hosp A/P (1) Lymphoma Status: Chronic (2) Obesity (BMI 30.0-34.9) Code(s): E66.9 - OBESITY, UNSPECIFIED Status: Chronic (3) Thrombocytopenia Code(s): D69.6 - THROMBOCYTOPENIA, UNSPECIFIED Status: Chronic (4) Fever Code(s): R50.9 - FEVER, UNSPECIFIED Status: Acute (5) Weakness generalized Code(s): R53.1 - WEAKNESS Status: Acute - Plan Doing well overall. Walking program. Appreciate GI recommendations. Continue empiric abx. Await negative cultures ate 48 hours. If negative and she remains asymptomatic and afebrile, will consider DC tomorrow.
--- NOTE | 2019-07-03 19:04 | CON ---
DATE OF CONSULTATION: 07/03/2019 REASON FOR CONSULTATION: Anemia and history of large cell lymphoma. HISTORY OF PRESENT ILLNESS: The patient is an 88-year-old woman with a history of large cell lymphoma, admitted for general malaise, poor appetite, and anemia. Her current illness begins in late 2017, when she presented with abdominal pain. A CT scan of the abdomen in July 2018, showed a 3 to 4 cm mass at the head of the pancreas. She underwent EUS and FNA of the mass, which was diagnostic of diffuse large B-cell lymphoma. C-Myc gene was not rearranged. However, BCL6 was positive and BCL2 was positive with no rearrangements. Ki67 was 90%. 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 As a consequence of her advanced age, obesity, and poor functional status, she was started on palliative chemotherapy consisting of CVP and Rituxan, which she received from September through January of 2019 with improvement by PET scan. In February, a PET scan showed possible active lymphoma with early progression. Maintenance Rituxan was continued. On admission here, a CBC revealed a white blood cell count 4.2, hemoglobin 6.6, and platelet count 41,000. White cell differential was significant for 30 neutrophils, 15 bands, 24 lymphocytes, 4 reactive lymphocytes, 16 monocytes, 1 eosinophil, 1 basophil, 7 metamyelocytes, and 2 myelocytes. The platelet count is 41K. She was transfused a single unit and her hemoglobin today is 8.7. Chemistries were stable as compared to outpatient studies with a slightly elevated creatinine at 1.37 and albumin of 3.2. The ferritin was reactively elevated at 1072. I am asked to see the patient this time to provide further management recommendations from an oncologic viewpoint. PAST MEDICAL HISTORY: ALLERGIES: NONE. MEDICATIONS ON ADMISSION: 1. Tylenol. 2. Elavil. 3. Lipitor. 4. Celexa. 5. Pepcid. 6. Folic acid. 7. Levothyroxine. 8. She has been started on empiric antibiotics. PAST MEDICAL HISTORY: There is a history of multiple medical problems including diabetes mellitus, hyperlipidemia, degenerative arthritis, depression, hypothyroidism, anemia, gastroesophageal reflux, sickle cell trait, and significant obesity. PAST SURGICAL HISTORY: She has undergone appendectomy, TAHBSO, carpal tunnel release, laparoscopic cholecystectomy followed by laparotomy for intestinal perforation in the remote past, upper GI endoscopy with dilation on 2 occasions in the past, multiple back surgeries, and knee replacement. SOCIAL HISTORY: The patient has 5 children, lives with her spouse and her spouse is present at the bedside. She is a nonsmoker and does not use alcohol. REVIEW OF SYSTEMS: Negative except as mentioned in the history of present illness. There is no history of significant GI, , musculoskeletal, or neurological complaints. PHYSICAL EXAMINATION: VITAL SIGNS: Temperature 98.6, pulse 78 and regular, respirations 16, blood pressure 104/66, and O2 saturation on room air is 95%. GENERAL: The patient is well-developed and well-nourished woman, in no acute distress. She is alert, oriented, cooperative. She is lying flat in bed and appropriate in conversation. HEENT: Extraocular movements are intact. Pupils are equal, round, reactive to light. NECK: Supple. LUNGS: Clear. CARDIOVASCULAR: Regular rate and rhythm without murmur or gallop or click. ABDOMEN: No tenderness, organomegaly, masses, bruits, or ascites. EXTREMITIES: No clubbing, cyanosis, or edema. SKIN: Normal lymph. No adenopathy. MUSCULOSKELETAL: No active arthritis. NEUROLOGICAL: No focal findings. Cranial nerves 2 through 12 are grossly intact. LABORATORY: See history of present illness. IMAGING DATA: Chest x-ray shows no acute findings. IMPRESSION: 1. 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 2. Multifactorial anemia. RECOMMENDATIONS: I discussed the findings above at length with the patient and her . The anemia is multifactorial. However, there is certainly a component of malignancy and it is quite likely that the large cell lymphoma involves marrow given the thrombocytopenia and the early white cells present in peripheral blood. I agree with transfusion for symptomatic improvement in her functional status. She can be discharged to be seen in the office. She is scheduled to return to my office on Friday, and I will address further therapy at that time. Thanks very much for allowing me to provide more recommendations. Job ID: [id number] [facility]
[2019-07-03] MEDS: Amitriptyline HCl 100 MG TAB PO SCH (20:07)
[2019-07-03] MEDS: Atorvastatin Calcium 20 MG TAB PO SCH (20:07)
[2019-07-03] MEDS: Vancomycin HCl 1 GM in Premix Bag 1 BAG IVPB SCH ×2 (20:07→20:37)
[2019-07-03 20:34] LABS: Vancomycin, Random 10.5 ug/mL (See Comment)
[2019-07-03] MEDS ORDERED: Vancomycin HCl 1.25 GM in Sodium Chloride 0.9% 250 ML 250 ML IVPB SCH (21:00)
[2019-07-04] MEDS: Levothyroxine Sodium 50 MCG TAB PO SCH (05:07)
[2019-07-04] MEDS: Cefepime 1 GM in Sodium Chloride 0.9% 100 ML IVPB SCH (08:23)
[2019-07-04] MEDS: Citalopram 20 MG TAB PO SCH (08:24)
[2019-07-04] MEDS: Folic Acid 1 MG TAB PO SCH (08:24)
[2019-07-04] MEDS: Famotidine 20 MG TAB PO SCH (08:24)
--- NOTE | 2019-07-04 15:37 | PDOC.HOSPP ---
- Subjective Subjective: Feels fine. No complaints. - Objective Vital Signs & Weight: Vital Signs (12 hours) Pulse Pulse BP BP 07/04/19 09:56 77 77 118/67 87/53 L Weight Weight 185 lb 6.54 oz I&O: 07/03/19 07/04/19 07/05/19 06:59 06:59 06:59 Intake Total 970 1170 800 Balance 970 1170 800 Result Diagrams: 07/03/19 07:34 07/03/19 07:34 Hospitalist ROS - Medication Medications: Active Medications Generic Name Dose Route Start Last Admin Trade Name Freq PRN Reason Stop Dose Admin Acetaminophen 650 mg 07/02/19 16:43 07/03/19 20:10 Tylenol PO 650 mg Q4H PRN Administration Headache/Fever/Mild Pain (1-3) Amitriptyline HCl 100 mg 07/02/19 21:00 07/03/19 20:07 Elavil PO 100 mg HS ELIANA Administration Atorvastatin Calcium 20 mg 07/02/19 21:00 07/03/19 20:07 Lipitor PO 20 mg HS ELIANA Administration Citalopram Hydrobromide 40 mg 07/03/19 09:00 07/04/19 08:24 Celexa PO 40 mg DAILY ELIANA Administration Famotidine 20 mg 07/03/19 09:00 07/04/19 08:24 Pepcid PO 20 mg DAILY ELIANA Administration Folic Acid 1 mg 07/03/19 09:00 07/04/19 08:24 Folvite PO 1 mg DAILY ELIANA Administration Levothyroxine Sodium 50 mcg 07/03/19 06:00 07/04/19 05:07 Synthroid PO 50 mcg 0600 ELIANA Administration - Exam General Appearance: NAD, awake alert Heart: RRR, no murmur, no gallops, no rubs, normal peripheral pulses Respiratory: CTAB, no wheezes, no rales, no ronchi, normal chest expansion, no tachypnea, normal percussion Gastrointestinal: soft, non-distended, normal bowel sounds, no palpable masses, no hepatomegaly, no splenomegaly, no bruit Gastrointestinal - other findings: Mild TTP epigastric and RUQ area. Skin: normal turgor Psychiatric: normal affect Hosp A/P (1) Lymphoma Status: Chronic (2) Obesity (BMI 30.0-34.9) Code(s): E66.9 - OBESITY, UNSPECIFIED Status: Chronic (3) Fever Code(s): R50.9 - FEVER, UNSPECIFIED Status: Acute (4) Weakness generalized Code(s): R53.1 - WEAKNESS Status: Acute (5) Pancytopenia Code(s): D61.818 - OTHER PANCYTOPENIA Status: Acute - Plan Doing well overall. Walking program. Appreciate GI recommendations. DC abx negative cultures ate 48 hours. Appreciate Onc recommendations. Anticipate discharge. Patient was able to ambulate a bit with PT and a walker. Discussed with her . They have a daughter and GD at home, but it will still be difficult to manage her. Consult CM for HH.
[2019-07-04 15:46] VITALS: BP 114/64; TEMP 99
== END 2019-07-04 19:20 | disposition home health service (06) | DRG 841 ==
LOC: ERS 13:26 → T4-B 19:40
PROVIDERS: ADMIT Internal Medicine; ATTEND Internal Medicine
DX: C83.30 Diffuse large B-cell lymphoma, unspecified site (principal); D61.818 Other pancytopenia; I10 Essential (primary) hypertension; Z66 Do not resuscitate; Z96.653 Presence of artificial knee joint, bilateral; E66.9 Obesity, unspecified; Z92.21 Personal history of antineoplastic chemotherapy; Z90.710 Acquired absence of both cervix and uterus; Z90.49 Acquired absence of other specified parts of digestive tract; Z79.899 Other long term (current) drug therapy; Z68.29 Body mass index [BMI] 29.0-29.9, adult; E11.9 Type 2 diabetes mellitus without complications; E78.5 Hyperlipidemia, unspecified; M19.90 Unspecified osteoarthritis, unspecified site; E03.9 Hypothyroidism, unspecified; K21.9 Gastro-esophageal reflux disease without esophagitis; D57.3 Sickle-cell trait
CPT/HCPCS: 36415; 36430; 71045; 80048; 80053; 80202; 81003; 82728; 83540; 83550; 83605; 83615; 84484; 85025; 86850; 86900; 86901; 87040; 87086; 87149; 87804; 93005; A4353; J0692; J3370; J3490; J7050; P9016